=== PATIENT | female | born 1945 | race Caucasian/White ===

== ENCOUNTER 2017-12-13 06:21 | Inpatient (IN) | payer MEDICARE, MEDICAID, SELFPAY ==
[2017-11-20 10:53] VITALS: BMI 37.5
[2017-12-13] VITALS (31 sets, daily range): BP systolic 77–162; BP diastolic 20–83; PULSE 51–69; RESP 10–20; TEMP 36.1–36.3; O2SAT 91–100; BMI 37.5
[2017-12-13] MEDS: LACTATED RINGERS 1,000 ML 42 ML IV ×2 (07:15→09:33)
[2017-12-13] MEDS: ALBUTEROL 2.5 MG/3 ML NEB (ADULT) INH ×2 (07:54→14:30)
--- NOTE | 2017-12-13 08:02 | PM.PREOP ---
Pre-operative Note Interval Note Pre-op Check: History & Physical Reviewed by Physician, Exam Performed and History & Physical exam performed today
[2017-12-13] MEDS: CEFAZOLIN 2 GM/100 ML FROZ.PIGGY IV ×3 (08:14→21:11)
--- NOTE | 2017-12-13 09:01 | SUR.OPER ---
Prone on spine table, head in foam head support, padded chest and pelvic supports, gel pad at knees, lower legs supported by pillows; nipples, genitalia and toes free of pressure, arms secured on foam padded arm boards at <90 degrees abduction. Tape over blanket at thigh secured to table.
[2017-12-13] MEDS: BUPIVACAINE 0.25% W/ EPI 50 ML VIAL INJ (09:14)
[2017-12-13] MEDS: BUPIVACAINE LIPOSOME 266 MG/20 ML VIAL INJ (09:15)
[2017-12-13] MEDS: ACETAMINOPHEN IV 1,000 MG/100 ML VIAL 400 MG IV (11:42)
--- NOTE | 2017-12-13 12:00 | DI.RAD.S_ITS ---
PROCEDURE: XR LUMBAR SPINE 2-3V INDICATIONS: L3-4, L4-5, L5-S1 TLIF TECHNIQUE: 2 views of the lumbar spine were acquired. COMPARISON: None. FINDINGS: 2 spot fluoroscopic intraoperative findings demonstrating L3-S1 posterior spinal fixation with interbody cage grafts. There is expected intraoperative alignment. Dictated by: Mathew Taylor M.D. on 12/13/2017 at 14:06 Approved by: Mathew Taylor M.D. on 12/13/2017 at 14:07
--- NOTE | 2017-12-13 13:26 | SUR.OPER ---
right anterior ankle - 50 cent piece size reddened area covered in gauze. noted before positioning patient. navi triplett marked area
--- NOTE | 2017-12-13 13:26 | PM.OP.1 ---
Operative Date/Time/Diagnoses - Date of procedure: 12/13/17 Time of procedure: 08:27 Pre-op diagnosis: 1. L3-4, L4-5, L5-S1 spinal stenosis 2. L3-4, L4-5, L5-S1 spondylolisthesis 3. L3-4, L4-5, L5-S1 spondylosis with radiculopathy Post-op diagnosis: same Procedure & Clinicians Procedure: 1. L3-4, L4-5, L5-S1 Postero-lateral and posterior interbody fusion 2. L3-4, L4-5, L5-S1 interbody cage placement. 3. L3-4, L4-5, L5-S1 decompressive laminectomy with bilateral facetecomies 4. L3-4, L4-5, L5-S1 Posterior segmental instrumentation 5. [place] of bone marrow from iliac crest 6. Utilization of microsurgical technique and operating microscope Same procedure as scheduled: Yes Indications: Patient has been having chronic back pain and worsening lumbar radiculopathy. Patient failed multiple conservative management with worsening pain weakness and numbness in her lower extremity. Patient has been having difficulty performing activity of daily living. Patient has severe weakness of bilateral lower extremity and has been wheelchair-bound for the last year. After discussing risks benefits of treatment options, patient elected proceed with surgery. Surgeon: Amanda Franklin Cooling Room Attendant: Adina Aguilar Click Yes if Unassisted: No Anesthesia Type: General Operative Notes Closure Type: primary Specimen(s): none sent Implants & Drains: Globus Revolve screws and cages Applied: catheter Estimated Blood Loss (mL): 327 Blood products transfused: none Procedure in detail: Patient was seen in the preoperative area. Risks and benefits of the surgery was discussed with the patient. Informed consent was obtained from the patient and placed in the chart. Surgical site was marked. Patient was taken to the operative room. General anesthesia was administered. Prophylactic antibiotic was given to the patient less than 30 min before the incision was made. Patient was placed into a prone position on the Cristhian table. Patient's back was then prepped and draped in the sterile fashion. Time-out was performed at this time. Using AP and lateral C-arm imaging the interval between L3-S1 was identified and marked on patient's back. A 3 inch incision 2 in from midline was made on the left side first. The fascia was incised in line with skin incision. Globus MARS retractors was placed inside the incision and docked onto the L3, L4 and L5 lamina. Using microsurgical technique and operating microscope, a L3, L4 and L5 laminectomy and L3-4, L4-5 L5-S1 facetectomy was performed using a Kerrison rongeur. The disc space at L3-4, L4-5, L5-S1 was identified. And a total diskectomy was performed at L3-4, L4-5, L5-S1 level. The endplates were decorticated using a rasp and shaver. The total diskectomy and decortication was performed at L3-4, L4-5, L5-S1 level in order to to accomplish a L3-4, L4-5, L5-S1 fusion. The local bone from the laminectomy and facetectomy was saved for local bone grafting. After the total diskectomy and decortication was completed, Globus viacell bone graft material was combined with local bone that was harvested earlier. At this time, a separate skin is incision was made over the iliac crest. A Jamshidi needle was inserted into the iliac crest through a separate skin incision. 5 cc of bone marrow aspiration was obtained through the separate skin incision using a Jamshidi needle from the iliac crest. The bone marrow aspiration was combined with local bone and the via cell bone grafting material. The bone grafting material was placed into the L3-4, L4-5, L5-S1 interbody space along with three cages, one expandable cage at each level. The cages were expanded to their maximum height using the torque limiting screwdriver. At this time a mirror image incision was made on the right side. The fascia was incised in line with the skin incision. Globus MARS retractor was inserted and docked onto the L3-4, L4-5, L5-S1 posterolateral gutter. Using the power drill, posterior-lateral decortication was performed at L3-4, L4-5, L5-S1 level until bleeding cortical bone was identified. The remaining bone grafting material was placed into the L3-4, L4-5 L5-S1 posterior lateral gutter he order to accomplish posterolateral fusion at the L3-4, L4-5 L5-S1 levels. Using the double C-arm technique, pedicle screws were placed into the L3, L4, L5, S1 pedicles bilaterally. This was done by placing the Jamshidi needle into the pedicles, then placing the guidewires over the Jamshidi needle, and finally placing the cannulated screws over the guidewires bilaterally. After the pedicle screws were placed, 2 titanium rods was locked into the heads of the pedicle screws using locking caps and torque limiting screwdriver. Total 8 pedicles screws were placed. After all the hardware was placed, and confirmed with AP and lateral C-arm imaging, the wound was then irrigated with sterile normal saline and packed with Ray-Merary gauze for 3 min to accomplish hemostasis. After the gauze was removed the deep fascia was closed with #1 Vicryl suture. The subcutaneous layer was closed with 2-0 Vicryl. The skin was closed with skin percy. Patient tolerated the procedure well. There were no complications. Complications: none Condition: stable Disposition: PACU Plan for aftercare: admit to inpatient hospital
--- NOTE | 2017-12-13 16:12 | SUR.PHASEI ---
Lenny gtt up by Dr Cramerat 1350 at40 mcg/min Neb Albuterol at 1430 Lenny gtt decreased to 35 mcg/min at 1420 Lenny gtt decreased to 30 mcg/min at 1445 Lenny gtt decreased to 25 mcg/min at 1545 Report called to the ICU Pharmacy came to PACU to get orders for Lenny gtt for ICU at 1535
[2017-12-13] MEDS: SODIUM CHLORIDE 0.9% 1,000 ML 100 ML IV (16:30)
[2017-12-13] MEDS: HYDROMORPHONE 0.5 MG INJ IV ×3 (17:00→23:56)
[2017-12-13] MEDS: ONDANSETRON 4 MG/2 ML INJ IV (17:19)
[2017-12-13] MEDS: HYDROMORPHONE 2 MG TABLET PO (17:48)
--- NOTE | 2017-12-13 17:51 | PC.NURSE ---
1600- Pt arrived via bed from PACU. Pt arouses easily to her spoken name. BP is stable at this time bianca gtt is on hold. Pt oral airway has been removed by PACU. Pt noted to have a skin tear to her right cheek, her upper lip has a large blister that covers approximately 90% of the lip surface. Dr. Ventura stopped by to see the patient. Requested that she observe the airway to ensure that there was no swelling to the the upper airway. No stridor noted and saturation on 5l high flow nasal cannula is 100% Pt respirations ranging from 6 to 10. Pt encouraged to take deep breaths. Pt is in sinus radha on the monitor. Lungs are dim/clear. Pt is able to clear her throat of secretions. Will monitor closely.
[2017-12-13] MEDS: DOCUSATE 100 MG CAPSULE PO (21:15)
[2017-12-13] MEDS: CARVEDILOL 6.25 MG TABLET PO (21:15)
[2017-12-13] MEDS: INSULIN ASPART 100 UNIT/ML INSULN PEN SUBCUT (21:19)
[2017-12-13] MEDS: PREGABALIN 50 MG CAPSULE 200 MG PO (21:21)
[2017-12-13] MEDS: SENNOSIDES 8.6 MG TABLET 17.2 MG PO (21:35)
[2017-12-14] VITALS (10 sets, daily range): BP systolic 112–154; BP diastolic 48–92; PULSE 64–85; RESP 12–18; TEMP 36.4–37.9; O2SAT 94–100
[2017-12-14] MEDS: HYDROMORPHONE 0.5 MG INJ IV ×6 (02:07→23:59)
[2017-12-14] MEDS: SODIUM CHLORIDE 0.9% 1,000 ML 100 ML IV (03:18)
[2017-12-14] MEDS: CEFAZOLIN 2 GM/100 ML FROZ.PIGGY IV (04:09)
[2017-12-14 05:19] LABS: Hematocrit 34.4 % (36-46); Hemoglobin 11.3 g/dL (12.0-16.0)
[2017-12-14] MEDS: PANTOPRAZOLE 40 MG TABLET PO ×2 (06:14→20:17)
[2017-12-14] MEDS: hydrOXYzine pamoate 25 MG CAPSULE PO ×2 (06:15→22:55)
[2017-12-14] MEDS: ACETAMINOPHEN 325 MG TABLET 650 MG PO ×3 (06:15→21:44)
[2017-12-14] MEDS: CARVEDILOL 6.25 MG TABLET PO ×2 (08:49→20:22)
[2017-12-14] MEDS: PREGABALIN 50 MG CAPSULE 200 MG PO ×3 (08:49→20:17)
[2017-12-14] MEDS: FERROUS SULFATE 325 MG TABLET PO (08:50)
[2017-12-14] MEDS: DULOXETINE 30 MG CAPSULE 60 MG PO (08:50)
[2017-12-14] MEDS: DOCUSATE 100 MG CAPSULE PO (08:50)
[2017-12-14] MEDS: ATORVASTATIN 20 MG TABLET PO (08:50)
[2017-12-14] MEDS: SPIRONOLACTONE 25 MG TABLET PO (08:51)
[2017-12-14] MEDS: HYDROXYCHLOROQUINE 200 MG TABLET 400 MG PO (08:51)
[2017-12-14] MEDS: LISINOPRIL 5 MG TABLET PO (08:51)
[2017-12-14] MEDS: LEFLUNOMIDE 20 MG TABLET PO (08:52)
[2017-12-14] MEDS: INSULIN ASPART 100 UNIT/ML INSULN PEN 10 UNIT SUBCUT (08:53)
[2017-12-14] MEDS: OXYCODONE IR 10 MG TABLET PO ×2 (09:00→22:12)
--- NOTE | 2017-12-14 09:32 | PM.CN ---
History of Present Illness Date Patient Seen: 12/14/17 Time Patient Seen: 08:15 Chief complaint: [id number]/M48.06 Reason for consult: Diabetes Narrative: The patient underwent L3-S1 spinal fusion on 12/13/2017 for lumbar spinal stenosis with radiculopathy. She has chronic diabetes with diabetic peripheral neuropathy with numbness below the knees. Surgery was performed under general anesthesia without an epidural or spinal anesthesia, and postoperatively the patient was hypotensive requiring pressors and hypoxic requiring oxygen. This resolved over night with patient titrated off her Crestor and oxygen with room air oxygen saturation 95% in the morning. Blood sugar was 127. She states her last hemoglobin A1c was 8%. Besides the back pain she reports no other complaints. [facility] Medical History Anxiety (Acute) Asthma (Acute) Blepharoconjunctivitis (Acute) CHF (congestive heart failure) (Acute) COPD (chronic obstructive pulmonary disease) (Acute) Cataract fragments in both eyes following surgery (Acute) Chronic low back pain (Acute) Complicated urinary tract infection (Acute) Depression (Acute) Diabetes (Acute) Dizziness (Acute) Dyspnea (Acute) Eczema (Acute) Fatigue (Acute) Fibromyalgia (Acute) GERD (gastroesophageal reflux disease) (Acute) 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) History of GI bleed (Acute) History of UTI (Acute) History of chest pain (Acute) History of headache (Acute) Hypertension (Acute) IBS (irritable bowel syndrome) (Acute) Liver disease (Acute) Memory loss (Acute) Nausea (Acute) Neurogenic bladder (Acute) Neuropathy due to secondary diabetes (Acute) Osteoarthritis (Acute) Osteoporosis (Acute) Ovarian cyst, right (Acute) Paroxysmal A-fib (Acute) Postmenopausal (Acute) Restless leg syndrome (Acute) Rheumatoid arthritis (Acute) Sinus infection (Acute) Sleep apnea (Acute) Sleeping difficulty (Acute) Spinal stenosis (Acute) Ulcer of toe of left foot (Acute) Urinary urgency (Acute) Vulvovaginitis due to yeast (Acute) Yeast dermatitis (Acute) Social History household members: other Smoking Status: Never smoker alcohol intake: never Comment: She is under the primary care of Dr. Shane Flower, lives in [place] and is single. Meds Home Medications Medication Instructions Recorded Confirmed Type abatacept 125 mg SUB-Q QWEEK 11/20/17 12/13/17 History albuterol sulfate [ProAir HFA] 2 puff INHALATION Q4-6H PRN 11/20/17 12/13/17 History aspirin 81 mg PO DAILY 11/20/17 12/13/17 History atorvastatin 20 mg PO DAILY 11/20/17 12/13/17 History betamethasone, augmented 1 applic TOPICAL DAILY 11/20/17 12/13/17 History carvedilol 6.25 mg PO BID 11/20/17 12/13/17 History diclofenac sodium 2 applic TOPICAL BID PRN 11/20/17 12/13/17 History duloxetine 60 mg PO DAILY 11/20/17 12/13/17 History duloxetine 60 mg PO DAILY 11/20/17 12/13/17 History duloxetine [Cymbalta] 60 mg PO DAILY 11/20/17 12/13/17 History ferrous sulfate 325 mg PO DAILY 11/20/17 12/13/17 History fluoxetine 20 mg PO QAM 11/20/17 12/13/17 History fluticasone 2 spray INTRANASAL DAILY PRN 11/20/17 12/13/17 History furosemide 20 mg PO DAILY PRN 11/20/17 12/13/17 History hydromorphone 2 mg PO BID PRN 11/20/17 12/13/17 History hydroxychloroquine 400 mg PO DAILY 11/20/17 12/13/17 History hyoscyamine sulfate 0.125 mg PO PRN PRN 11/20/17 12/13/17 History insulin lispro [Humalog U-100 10 unit SUB-Q QAM 11/20/17 12/13/17 History Insulin] insulin lispro [Humalog U-100 25 unit SUB-Q SEEINSTR 11/20/17 12/13/17 History Insulin] leflunomide 20 mg PO DAILY 11/20/17 12/13/17 History lisinopril 5 mg PO DAILY 11/20/17 12/13/17 History loratadine 10 mg PO DAILY PRN 11/20/17 12/13/17 History nitroglycerin 0.4 mg SUBLINGUAL Q5-15M PRN 11/20/17 12/13/17 History nystatin 1 applic TOPICAL BID PRN 11/20/17 12/13/17 History omeprazole 40 mg PO BID 11/20/17 12/13/17 History pramipexole 0.5 mg PO SEEINSTR 11/20/17 12/13/17 History pregabalin [Lyrica] 200 mg PO TID 11/20/17 12/13/17 History spironolactone 25 mg PO DAILY 11/20/17 12/13/17 History tolnaftate 1 applic TOPICAL BID 11/20/17 12/13/17 History zolpidem 5 mg PO BEDTIME PRN 11/20/17 12/13/17 History Allergies Allergy/AdvReac Type Severity Reaction Status Date / Time metformin [METFORMIN] Allergy Severe Hives Verified 12/13/17 07:25 methadone Allergy Severe Hives Verified 12/13/17 07:25 Sulfa (Sulfonamide Allergy Severe Hives Verified 12/13/17 07:25 Antibiotics) sulfasalazine Allergy Severe R/T sulfa Verified 12/13/17 07:25 allergy trazodone Allergy Severe Hives, Verified 12/13/17 07:25 Resp issues, confusion trimethoprim Allergy Intermediate Hives Verified 12/13/17 07:25 etanercept Allergy Mild Rash, Verified 12/13/17 07:25 non-urticarial adalimumab Allergy Unknown Localized Verified 12/13/17 07:25 swelling diflunisal AdvReac Severe May have Verified 12/13/17 07:25 caused renal injury 10/28 bacitracin AdvReac Intermediate Swelling, Verified 12/13/17 07:25 burning amoxicillin AdvReac Unknown Diarrhea Verified 12/13/17 07:25 cefuroxime AdvReac Unknown Diarrhea Verified 12/13/17 07:25 hydroxychloroquine AdvReac Unknown Stopped Verified 12/13/17 07:25 for unknown reason methotrexate AdvReac Unknown oral ulcer Verified 12/13/17 07:25 issues Exam Vital Signs (past 8 hours): - 12/14/17 02:16 12/14/17 04:11 12/14/17 06:00 Temperature 100.2 F H Pulse Rate 66 70 75 Respiratory Rate 14 15 12 Blood Pressure 134/53 H 133/50 H 149/70 H Pulse Oximetry 98 99 98 12/14/17 07:51 Temperature 99.3 F Pulse Rate 76 Respiratory Rate 18 Blood Pressure 147/63 H Pulse Oximetry 99 Oxygen Delivery Method Nasal Cannula Oxygen Flow Rate 3 Narrative Exam Narrative: General: Obese female, mildly somnolent, stating moderate back pain appearing uncomfortable HEENT: Pupils 1 mm, round, reactive Neck: Supple Lungs: Clear to auscultation Cardiac: Regular rate and rhythm with grade 3/6 systolic murmur Abdomen: Soft, nontender, obese Extremities: Without edema Genitourinary: Navarrete catheter in place Neurologic: Absent sensation below the knees due to chronic diabetic peripheral neuropathy, otherwise normal sensation and motor function Objective Labs Result Diagrams: 12/14/17 04:45 Labs: Laboratory Results - last 24 hr 12/14/17 04:45 Hgb 11.3 L Hct 34.4 L Assessment & Plan Plan: Assessment/Plan Narrative: 1. Diabetes mellitus, type 2. Appears well controlled. Monitor with advancing diet. Continue routine insulin with sliding scale coverage. 2. Hypertension. Appears adequately controlled. Continue routine medication. 3. Rheumatoid arthritis. Continue routine antirheumatic medications. She does not need to receive Orencia, however, while in the hospital. 4. Lumbar spinal stenosis, status post lumbar fusion 12/13/2017. Management per Orthopedics and Physical therapy. The hospitalist service wishes to thank the Orthopedic Services for consulting us on this delightful patient. Will follow with you during hospitalization.
--- NOTE | 2017-12-14 09:45 | CM.DANOTE ---
DCP Assessment Patient is a 72 year old female who was admitted on 12/13/17 for Surgery. Pt has [facility] and [facility] for insurance and her PCP is Dr. Sanches. EMR was reviewed. Per MD, pt tolerated procedure and not stable for d/c home today. PT/OT ordered and pending. SW met bedside with pt and explained role and pt confirmed that she lives at home in [place] with her adult Dtr Mariana and pt also has 2 Caregivers through [employer] that assist pt with ADL's. Pt's [facility] CM is Shayna. Pt typically relies on others for transportation. Pt has a hx of [facility] and [facility] in [place]. Pt believes that her Dtr Annmarie is her DPOA and she lives in [place]. Pt's preference is to d/c home with [facility] but is aware that if she doesn't progress enough here that she may need SNF again. Plan: SW to follow closely after PT/OT eval towards determining d/c planning needs of SNF vs Home with HH and adult Dtr and [facility]. Cindi Briones, SAMPLE PASTER
--- NOTE | 2017-12-14 11:00 | PT.IIE ---
Current Diagnoses Spondylolisthesis, lumbar region (12/13/17) Other spondylosis with radiculopathy, lumbar region (12/13/17) Surgery Performed Operation Date: 12/13/17 07:45 Actual Procedures p L34-, L4-5, L5-S1 TLIF w/Posterior Instru(Not Applicable) - Amanda Franklin MD Medical History (Last Reviewed 12/14/17 @ 09:35 by Thom Mohr MD) Anxiety (Acute) Asthma (Acute) Blepharoconjunctivitis (Acute) CHF (congestive heart failure) (Acute) COPD (chronic obstructive pulmonary disease) (Acute) Cataract fragments in both eyes following surgery (Acute) Chronic low back pain (Acute) Complicated urinary tract infection (Acute) Depression (Acute) Diabetes (Acute) Dizziness (Acute) Dyspnea (Acute) Eczema (Acute) Fatigue (Acute) Fibromyalgia (Acute) GERD (gastroesophageal reflux disease) (Acute) 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) History of GI bleed (Acute) History of UTI (Acute) History of chest pain (Acute) History of headache (Acute) Hypertension (Acute) IBS (irritable bowel syndrome) (Acute) Liver disease (Acute) Memory loss (Acute) Nausea (Acute) Neurogenic bladder (Acute) Neuropathy due to secondary diabetes (Acute) Osteoarthritis (Acute) Osteoporosis (Acute) Ovarian cyst, right (Acute) Paroxysmal A-fib (Acute) Postmenopausal (Acute) Restless leg syndrome (Acute) Rheumatoid arthritis (Acute) Sinus infection (Acute) Sleep apnea (Acute) Sleeping difficulty (Acute) Spinal stenosis (Acute) Ulcer of toe of left foot (Acute) Urinary urgency (Acute) Vulvovaginitis due to yeast (Acute) Yeast dermatitis (Acute) Physical Therapy Inpatient Evaluation/Re-Eval M1 PT/OT-IP Prior Functional Status Start: 12/14/17 11:48 Freq: NEEDED Status: Active Protocol: Document 12/14/17 11:00 AB (Rec: 12/14/17 12:28 AB [id number]) Medical Review Prior Functional Status Medical History Reviewed Yes Mobility and Gait pt stated that she needs assist with stand pivot transfer bed <>power w/c<> recliner. pt has a caregiver that assists her and assists varies for max A of 1 to 3 persons. stated that she has grab bars and she holds on to the grab bar for toilet and shower transfers from power w/ c. h/o falls due to BLE just given out on her. Last fall per pt was ~ 4 days ago. Activities of Daily Living and IADL's pt has caregivers in the morning and her daughter assists in the evening when she is back from work Prior Functional Level (Other details) pt stated that she has been w/ c bound for ~ 5 years due to BLE weakness and dizziness and also c/o BLE neuropathy for ~ 10 years. 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 Living Arrangements Apartment/Condo Number of Floors (Floors) One Floor Home Environment Standard Height Toilet Walk in Shower Home Equipment Power Wheelchair/Scooter Grab Bars Near Toilet Grab Bars In Shower Employment Status Retired M2 PT-IP Current Condition Start: 12/14/17 12:15 Freq: NEEDED Status: Active Protocol: Document 12/14/17 11:00 AB (Rec: 12/14/17 12:28 [id number] Physical Therapy Current Condition Current Condition Evaluation Date 12/14/17 Treatment Diagnosis s/p L3-4, L4-5, L5S1 TLIF and laminectomy; generalized weakness Onset Date 12/13/17 Precautions Lumbar Precautions Log Roll No Twisting Limit Bending Lifting Restriction of 10 lbs Gait Belt above Incisional Area M3 PT-IP Subjective Start: 12/14/17 12:15 Freq: NEEDED Status: Active Protocol: Document 12/14/17 11:00 AB (Rec: 12/14/17 12:28 [id number]) Subjective Physical Therapy Visit Type Type Initial Evaluation Visit Start Time 11:00 Visit Stop Time 11:35 Total Visit Minutes 35 Number of AUTOMOTIVE TEACHER Visits 0 Therapy Pain Assessment Pain When Pain Assessed At Rest Pain Present Pain Present Pain Reported Location Lower Back Intensity 9 Scale Used Numeric (1 - 10) Pain Behaviors Calling Out Guarding Pain Management Techniques Re-positioning Timing of Activity with Medications M4 PT-IP Mobility and Gait Start: 12/14/17 12:15 Freq: NEEDED Status: Active Protocol: Document 12/14/17 11:00 AB (Rec: 12/14/17 12:28 AB [id number]) PT-Bed Mobility Assessment Rolling Type of Rolling Log Rolling Level of Assist Maximal Assistance 2 Person Assistance Supine to Sit Supine to Sit Total Assistance 2 Person Assistance Bedrails Sit to Supine Sit to Supine Total Assistance 2 Person Assistance Bedrails PT-Transfer Assessment Comments Mobility Comments pt was able to sit on EOB requiring max A and max cues; unable to maintain sitting balance with increase posterior LOB. pt unable to complete a transfer to the chair. instructed [facility] that they can do a leon lift transfer with pt. PT-Balance Assessment Sitting Balance and Reactions Static Sitting Balance Ability Poor Dynamic Sitting Balance Ability Poor M5 PT-IP Objective Assessments Start: 12/14/17 12:15 Freq: NEEDED Status: Active Protocol: Document 12/14/17 11:00 AB (Rec: 12/14/17 12:28 AB [id number]) Orientation Orientation/Cognition Level of Alertness Alert Orientation Name Situation Safety Awareness Decreased Safety Awareness Memory Description Short Term Impaired Stonemason Supervisor Impaired Gross Range of Motion Lower Extremity ROM Assessment Within Functional Limits Strength Lower Extremity Strength Assessment Bilaterally Impaired Hip 2-/5 Knee 2-/5 Ankle 2-/5 Sensation Assessment Sensation Gross Sensation Right LE Impaired Left LE Impaired Light Touch Impaired Proprioception (Position) Impaired Sensation Description Numbness M6 PT-IP Treatment Start: 12/14/17 12:15 Freq: NEEDED Status: Active Protocol: Document 12/14/17 11:00 AB (Rec: 12/14/17 12:28 AB [id number]) Physical Therapy Treatment Education Education Provided Precautions Weight Bearing Status Post-Op Packet Safety M7 PT-IP Assessment and Plan Start: 12/14/17 12:15 Freq: NEEDED Status: Active Protocol: Document 12/14/17 11:00 AB (Rec: 12/14/17 12:28 [id number]) PT Summary Assessment and Plan Potential Rehabilitation Potential Fair Status of Condition at Evaluation Evolving Summary Impairments Pain ROM Strength Balance Coordination Sensation Tone Cognition Bed Mobility Transfers Gait Activity Tolerance Assessment Summary pt requiring total A x 2-3 for mobility at this time. pt will require SNF rehab. Goals Bed Mobility Goal Moderate Assistance Transfer Goal Moderate Assistance Front Wheeled Walker Days to Meet Goals 3 Frequency of Treatment Frequency Of Treatment Twice a Day Treatment Plan Physical Therapy Treatment Plan Bed Mobility Training Transfer Training Gait Training Therapeutic Exercise Balance Retraining Post Op Education Discharge Planning Hot or Cold Pack Neuromuscular Re-ed Coordination Retraining Manual Therapy Recommendations To Nursing Amount of Assist Needed 3 or More Person Assist Mechanical Lift Discharge Recommendations PT Discharge Recommendations SNF Rehab
[2017-12-14] MEDS: HYDROMORPHONE 2 MG TABLET PO ×2 (11:44→14:08)
--- NOTE | 2017-12-14 13:04 | PM.PNPO.1 ---
Subjective Date Patient Seen: 12/14/17 Time Patient Seen: 13:04 Interval history: Hospital day 2, postop day 1 following L3-4 through L5-S1 TLIF, cage, posterior screw fixation by Dr. Franklin. Patient continues have significant pain. Has been receiving Dilaudid IV push and p.o. oxycodone. Patient complains of continued pain to the low back and increased bilateral leg pain since surgery. She has not been out of bed yet had PT. Exam Vital Signs (past 8 hours): - 12/14/17 06:00 12/14/17 07:51 12/14/17 12:00 Temperature 99.3 F 97.5 F L Pulse Rate 75 76 71 Respiratory Rate 12 18 16 Blood Pressure 149/70 H 147/63 H 124/48 H Pulse Oximetry 98 99 95 Oxygen Delivery Method High Flow Nasal Cannula Oxygen Flow Rate 3 Narrative Exam Narrative: Alert, responsive line been appearing and moderate discomfort. Legs. No calf pain or swelling. Pulses symmetrical. Sensation to touch to the lower legs. Objective Labs Result Diagrams: 12/14/17 04:45 Labs: Laboratory Results - last 24 hr 12/14/17 04:45 Hgb 11.3 L Hct 34.4 L Assessment & Plan Post-op Postoperative Procedures Operation Date: 12/13/17 07:45 Actual Procedures Side Surgeon p L34-, L4-5, L5-S1 TLIF w/Posterior Instru Not Applicable Amanda Franklin MD Plan. Will adjust patient's pain medication. Will add dexamethasone to see if this will help with her back and leg pain. When patient is stable she will be transferred to routine care acute floor. Will DC dry chain offbearer. Patient also being followed by hospitalist for medical issues. Time Spent With Patient less than 15 minutes Quality VTE Deep Vein Thrombosis/Pulmonary Embolism Present on Admission: No
--- NOTE | 2017-12-14 13:07 | P.PN_ITS ---
Subjective Date Patient Seen: 12/14/17 Time Patient Seen: 13:04 Interval history: Hospital day 2, postop day 1 following L3-4 through L5-S1 TLIF , cage, posterior screw fixation by Dr. Franklin. Patient continues have significant pain. Has been receiving Dilaudid IV push and p.o. oxycodone. Patient complains of continued pain to the low back and increased bilateral leg pain since surgery. She has not been out of bed yet had PT. Exam Vital Signs (past 8 hours): - 12/14/17 06:00 12/14/17 07:51 12/14/17 12:00 Temperature 99.3 F 97.5 F L Pulse Rate 75 76 71 Respiratory Rate 12 18 16 Blood Pressure 149/70 H 147/63 H 124/48 H Pulse Oximetry 98 99 95 Oxygen Delivery Method High Flow Nasal Cannula Oxygen Flow Rate 3 Narrative Exam Narrative: Alert, responsive line been appearing and moderate discomfort. Legs. No calf pain or swelling. Pulses symmetrical. Sensation to touch to the lower legs. Objective Labs Result Diagrams: 12/14/17 04:45 Labs: Laboratory Results - last 24 hr 12/14/17 04:45 Hgb 11.3 L Hct 34.4 L Assessment & Plan Post-op Postoperative Procedures Operation Date: 12/13/17 07:45 Actual Procedures Side Surgeon p L34-, L4-5, L5-S1 TLIF w/Posterior Instru Not Applicable Amanda Franklin MD Plan. Will adjust patient's pain medication. Will add dexamethasone to see if this will help with her back and leg pain. When patient is stable she will be transferred to routine care acute floor. Will DC manager environmental health. Patient also being followed by hospitalist for medical issues. Time Spent With Patient less than 15 minutes Quality VTE Deep Vein Thrombosis/Pulmonary Embolism Present on Admission: No
--- NOTE | 2017-12-14 13:38 | SUR.OPER ---
DAy shift: Arrived on unit at aprox 1300 from ICU. Pt drowsy but able to answer questions proper. Dressing on back CDI.LEft gaspar dressing CDI as well. Pt was placed in Gurmeet and moved to Abigail bed. This move was painful for Pt. She complained of leg pain. Gave 0.5mg IV Dilaudid. Pt is eating pudding w/ her daughters help. RA 97%. Navarrete patent w/ good output. IV flushes and is SL. LAst BG 145. Oriented to room and call light. Wheelchair use is her baseline. 3 ppl max assist.
[2017-12-14] MEDS: DEXAMETHASONE 4 MG TABLET PO ×2 (14:07→21:45)
--- NOTE | 2017-12-14 15:25 | PT.IPTN ---
Current Diagnoses Spondylolisthesis, lumbar region (12/13/17) Other spondylosis with radiculopathy, lumbar region (12/13/17) Surgery Performed Operation Date: 12/13/17 07:45 Actual Procedures p L34-, L4-5, L5-S1 TLIF w/Posterior Instru(Not Applicable) - Amanda Franklin MD Physical Therapy Treatment Note M2 PT-IP Current Condition Start: 12/14/17 12:15 Freq: NEEDED Status: Active Protocol: Document 12/14/17 11:00 AB (Rec: 12/14/17 12:28 AB [id number]) Physical Therapy Current Condition Current Condition Evaluation Date 12/14/17 Treatment Diagnosis s/p L3-4, L4-5, L5S1 TLIF and laminectomy; generalized weakness Onset Date 12/13/17 Precautions Lumbar Precautions Log Roll No Twisting Limit Bending Lifting Restriction of 10 lbs Gait Belt above Incisional Area M3 PT-IP Subjective Start: 12/14/17 12:15 Freq: NEEDED Status: Active Protocol: Document 12/14/17 15:25 AB (Rec: 12/14/17 16:21 AB [id number]) Subjective Physical Therapy Visit Type Visit Start Time 15:25 Visit Stop Time 15:47 Total Visit Minutes 22 Number of CHILD WELFARE COUNSELOR Visits 0 Therapy Pain Assessment Pain When Pain Assessed At Rest Pain Present Pain Present Pain Reported Location Bilateral Hip Intensity 9 Scale Used Numeric (1 - 10) Pain Management Techniques Re-positioning M4 PT-IP Mobility and Gait Start: 12/14/17 12:15 Freq: NEEDED Status: Active Protocol: Document 12/14/17 15:25 AB (Rec: 12/14/17 16:21 AB [id number]) PT-Bed Mobility Assessment Rolling Type of Rolling Log Rolling Level of Assist Maximal Assistance 2 Person Assistance Supine to Sit Supine to Sit Total Assistance 2 Person Assistance Sit to Supine Sit to Supine Total Assistance 2 Person Assistance Scooting Scooting to Edge of Bed Dependent Scooting Up and Down in Bed Dependent PT-Transfer Assessment Comments Mobility Comments pt tolerated ~ 5min sitting on EOB. continues to have posterior trunk LOB requiring max A to maintain sitting. pt used bed handle for support. M5 PT-IP Objective Assessments Start: 12/14/17 12:15 Freq: NEEDED Status: Active Protocol: Document 12/14/17 11:00 AB (Rec: 12/14/17 12:28 AB [id number]) Orientation Orientation/Cognition Level of Alertness Alert Orientation Name Situation Safety Awareness Decreased Safety Awareness Memory Description Short Term Impaired Retirement Impaired Gross Range of Motion Lower Extremity ROM Assessment Within Functional Limits Strength Lower Extremity Strength Assessment Bilaterally Impaired Hip 2-/5 Knee 2-/5 Ankle 2-/5 Sensation Assessment Sensation Gross Sensation Right LE Impaired Left LE Impaired Light Touch Impaired Proprioception (Position) Impaired Sensation Description Numbness M6 PT-IP Treatment Start: 12/14/17 12:15 Freq: NEEDED Status: Active Protocol: Document 12/14/17 11:00 AB (Rec: 12/14/17 12:28 AB [id number]) Physical Therapy Treatment Education Education Provided Precautions Weight Bearing Status Post-Op Packet Safety M7 PT-IP Assessment and Plan Start: 12/14/17 12:15 Freq: NEEDED Status: Active Protocol: Document 12/14/17 15:25 AB (Rec: 12/14/17 16:21 AB [id number]) PT Summary Assessment and Plan Potential Rehabilitation Potential Fair Summary Impairments Pain ROM Strength Balance Coordination Sensation Tone Cognition Bed Mobility Transfers Gait Activity Tolerance Progress Towards Goals Slow Progress due to Pain Slow Progress due to Medical Issues Slow Progress due to Activity Tolerance Assessment Summary pt continues to require total A x 2-3 with max cues. pt will require SNF rehab. Goals Days to Meet Goals 3 Frequency of Treatment Frequency Of Treatment Twice a Day Treatment Plan Physical Therapy Treatment Plan Bed Mobility Training Transfer Training Gait Training Therapeutic Exercise Balance Retraining Post Op Education Discharge Planning Hot or Cold Pack Neuromuscular Re-ed Coordination Retraining Manual Therapy Recommendations To Nursing Amount of Assist Needed 3 or More Person Assist Mechanical Lift Discharge Recommendations PT Discharge Recommendations SNF Rehab
--- NOTE | 2017-12-14 15:38 | PC.NURSE ---
Addendum entered by Hugo Hawley R.N. 12/14/17 15:56: patient is back to bed, somnolent but is easily awaken by staff. Patient reports pain to be 8/10 at this time but states it is tolerable. Because of patient's somnolent state this nurse has choose to wait to medicate paitent for said pain until she is able to stay awake for a longer period of time, patient was falling asleep during assessment but was able to answer questions that staff member asked her. Patient is A&O to self, persident and place but stated it was Saturday. Cont. pulse ox to stay on patient while sleeping. Call light w/ in reach, bed in low pos. alarm active. Original Note: OT in room working with patient, will return back later on to assess patient.
--- NOTE | 2017-12-14 15:55 | OT.IP.EVAL ---
Current Diagnoses Spondylolisthesis, lumbar region (12/13/17) Other spondylosis with radiculopathy, lumbar region (12/13/17) Surgery Performed Operation Date: 12/13/17 07:45 Actual Procedures p L34-, L4-5, L5-S1 TLIF w/Posterior Instru(Not Applicable) - Amanda Franklin MD Past Medical History (Last Reviewed 12/14/17 @ 09:35 by Thom Mohr MD) Anxiety (Acute) Asthma (Acute) Blepharoconjunctivitis (Acute) CHF (congestive heart failure) (Acute) COPD (chronic obstructive pulmonary disease) (Acute) Cataract fragments in both eyes following surgery (Acute) Chronic low back pain (Acute) Complicated urinary tract infection (Acute) Depression (Acute) Diabetes (Acute) Dizziness (Acute) Dyspnea (Acute) Eczema (Acute) Fatigue (Acute) Fibromyalgia (Acute) GERD (gastroesophageal reflux disease) (Acute) 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) History of GI bleed (Acute) History of UTI (Acute) History of chest pain (Acute) History of headache (Acute) Hypertension (Acute) IBS (irritable bowel syndrome) (Acute) Liver disease (Acute) Memory loss (Acute) Nausea (Acute) Neurogenic bladder (Acute) Neuropathy due to secondary diabetes (Acute) Osteoarthritis (Acute) Osteoporosis (Acute) Ovarian cyst, right (Acute) Paroxysmal A-fib (Acute) Postmenopausal (Acute) Restless leg syndrome (Acute) Rheumatoid arthritis (Acute) Sinus infection (Acute) Sleep apnea (Acute) Sleeping difficulty (Acute) Spinal stenosis (Acute) Ulcer of toe of left foot (Acute) Urinary urgency (Acute) Vulvovaginitis due to yeast (Acute) Yeast dermatitis (Acute) Occupational Therapy Inpatient Evaluation/Re-Eval M1 PT/OT-IP Prior Functional Status Start: 12/14/17 11:48 Freq: NEEDED Status: Active Protocol: Document 12/14/17 11:59 [facility] (Rec: 12/14/17 12:30 [facility] [id number]) Medical Review Prior Functional Status Medical History Reviewed Yes Diet/Fluid Consistency Regular Thin Liquids Mobility and Gait Prior per pt needing assist 1- 2 person stand pivot assist from bed to power wc, power wc to toilet or power recliner. Spoke to pt's daughter and she states pt able to transfer on her own squat prior and heavy use of arms to grab bars, and armrests Activities of Daily Living and IADL's Pt total assist for all LB dressing needs, and able to do most of UB dressing needs per pt. Prior Functional Level (Other details) Pt states able to do own grooming and eating on her own . Social History Household Members children Living Arrangements Apartment/Condo Number of Floors (Floors) One Floor Home Environment Standard Height Toilet Walk in Shower Home Equipment Power Wheelchair/Scooter Tub Transfer Bench Lift Recliner Grab Bars Near Toilet Grab Bars In Shower Additional Social History Comment Pt daughter assist at night from 9PM to 10Am and has DALJIT caregivers during the day 4 hours each. M2 OT-IP Current Condition Start: 12/14/17 11:48 Freq: Status: Active Protocol: Document 12/14/17 11:59 [facility] (Rec: 12/14/17 12:30 [facility] [id number]) Occupational Therapy Current Condition Current Condition Evaluation Date 12/14/17 Treatment Diagnosis Lumbar spinal stenosis Post Operative Precautions Lumbar Precautions Log Roll No Twisting Limit Bending Lifting Restriction of 10 lbs Gait Belt above Incisional Area Weight Bearing Status Weight Bearing Status Full Weight Bearing M3 OT- IP Subjective and Pain Start: 12/14/17 11:48 Freq: Status: Active Protocol: Document 12/14/17 11:59 [facility] (Rec: 12/14/17 12:30 [facility] [id number]) OT- Subjective Occupational Therapy Visit Type Type Initial Evaluation Visit Start Time 11:00 Visit Stop Time 11:40 Total Visit Minutes 40 Occupational Therapy Visit Comments Patient Comments Pt willing to get up. Patient/Caregiver Goals Pt wanting to go home versus skilled rehab. OT Pain Assessment Pain When Pain Assessed At Rest Pain Present Pain Present Pain Reported Location Lower Back Intensity 9 Scale Used Numeric (1 - 10) Management Techniques Timing of Activity with Medications M4 OT- IP ADL's Start: 12/14/17 11:48 Freq: Status: Active Protocol: Document 12/14/17 11:59 [facility] (Rec: 12/14/17 12:30 [facility] [id number]) OT TEC-Djjn-Rvasnvi General Evaluation Self-Feeding Ability Total Assistance Comments OT Self-Feeding Comments Pt's arms very shaky and had to be fed this morning per aid . OT ADL-Grooming General Evaluation Grooming Ability Total Assistance Comments OT Grooming Comments Unable to reach up to her face with a washcloth and needing assist. OT ADL-Dressing General Eval Upper Body Dressing Ability Total Assistance Lower Body Dressing Ability Total Assistance Areas Needing Assistance Retrieving/Set-up of Clothing Socks Comments OT Dressing Comments Pt dependent for all dressing needs at this time. OT ADL-Toileting General Evaluation Areas Needing Assistance Empty Catheter or Colostomy Comments OT Toileting Comments Use of catheter OT ADL-Bathing Comments OT Bathing Comments Sponge bathing at this time. M6 OT- IP Functional Cognition Start: 12/14/17 11:48 Freq: Status: Active Protocol: Document 12/14/17 11:59 [facility] (Rec: 12/14/17 12:30 [facility] [id number]) Cognitive Factors Limiting Selfcare Function Cognitive Ability Level of Alertness Alert Drowsy Patient Orientation Name Place Situation Attention Span Ability Capable of Focused Attention Unable to Sustain Attention Ability to Follow Commands Able to Follow One Step Commands Memory Description Short Term Impaired Safety Awareness Underestimates Need for Assistance Cognitive Comments Cognitive Assessment Comments Pt having difficulty to follow directions due to very distracted with pain and having difficulty to sustain her attention. OT- Vision and Hearing OT- Hearing Assessment OT- Hearing Assessment WFL M7 OT- IP Mobility and Balance Start: 12/14/17 11:48 Freq: Status: Active Protocol: Document 12/14/17 11:59 [facility] (Rec: 12/14/17 12:30 [facility] [id number]) OT- Bed Mobility Assessment Rolling Type of Rolling Roll to Left Level of Assistance Total Assistance Supine to Sit Supine to Sit Assist Total Assistance Sit to Supine Sit to Supine Assist Total Assistance OT-Transfer Assessment Comments Mobility Comments MAX A X3 for bed mobility. OT- Balance Assessment Sitting Balance and Reactions Static Sitting Balance Ability Poor Comments Other Balance Tests/Deviations/Treatment Pt needing at least MODA x1 to : help maintain sitting balance , pt very fearful and guarding . M8 OT- IP Objective Assessments Start: 12/14/17 11:48 Freq: Status: Active Protocol: Document 12/14/17 11:59 [facility] (Rec: 12/14/17 12:30 [facility] [id number]) OT Gross Range of Motion Upper Extremity Range of Motion Assessment Bilaterally Impaired ROM Impairments Pt very shaky and limited movements, able to bend at elbow, and hands appeared swollen and not able to fully close her hands. OT Strength Comments Strength Comments Pt 3-/5 for BUE. M9 OT- IP Assessment and Plan Start: 06/30/18 11:48 Freq: Status: Active Protocol: Document 12/14/17 11:59 [facility] (Rec: 12/14/17 12:30 [facility] [id number]) OT Summary Assessment and Plan Potential Rehabilitation Potential Fair Analytic Complexity at Evaluation Moderate Summary OT Impairments Pain Range of Motion Strength Balance Coordination Sensation Functional Cognition Functional Mobility Self-Feeding Grooming Dressing Toileting Bathing Toilet Transfers Shower Transfers Progress Towards Goals Slow Progress due to Pain Slow Progress due to Medical Issues Slow Progress due to Activity Tolerance Slow Progress due to Cognition Assessment Summary Pt now needing extensive assist x3 for bed mobility and unable to attempt to stand at this time. Pt now unable to functional use BUE to do grooming and eating needs. Pt will need skilled rehab as prior able to transfer with one person assist. Goals Self-Feeding Goal Standby Assistance Grooming Goal Minimal Assistance Patient/Caregiver Education Goal Caregiver Independent Assisting Patient OT-Other Goals Pt to be able to do stand pivot transfer with MAX A x1 to [facility] [place] [place] and recliner. Frequency of Treatment Frequency Of Treatment Once a Day Treatment Plan OT Treatment Plan ADL Training Functional Cognition Training Functional Mobility Patient/Family Education Discharge Planning Discharge Recommendations OT Discharge Recommendations SNF Rehab
[2017-12-14] MEDS: PRAMIPEXOLE 0.25 MG TABLET 0.5 MG PO (20:19)
[2017-12-14] MEDS: INSULIN ASPART 100 UNIT/ML INSULN PEN SUBCUT (20:21)
[2017-12-15] MEDS: SODIUM CHLORIDE 0.9% FLUSH 10 ML IV ×3 (00:01→20:15)
[2017-12-15 05:00] VITALS: BP 157/72; PULSE 80; RESP 17; TEMP 36.5; O2SAT 97
[2017-12-15] MEDS: OXYCODONE IR 10 MG TABLET PO ×4 (05:48→20:39)
[2017-12-15] MEDS: PANTOPRAZOLE 40 MG TABLET PO ×2 (05:48→20:14)
[2017-12-15] MEDS: DEXAMETHASONE 4 MG TABLET PO ×2 (05:48→12:57)
[2017-12-15 07:35] VITALS: BP 144/67; PULSE 75; RESP 16; TEMP 36.6; O2SAT 99
[2017-12-15] MEDS: INSULIN ASPART 100 UNIT/ML INSULN PEN SUBCUT ×4 (08:07→20:40)
[2017-12-15] MEDS: INSULIN ASPART 100 UNIT/ML INSULN PEN 20 UNIT SUBCUT (09:23)
[2017-12-15] MEDS: ATORVASTATIN 20 MG TABLET PO (09:27)
[2017-12-15] MEDS: CARVEDILOL 6.25 MG TABLET PO ×2 (09:27→20:12)
[2017-12-15] MEDS: DULOXETINE 30 MG CAPSULE 60 MG PO (09:28)
--- NOTE | 2017-12-15 09:28 | PM.PN.1 ---
Subjective Date Patient Seen: 12/15/17 Time Patient Seen: 08:40 Interval history: Patient's blood sugars are in the mid to high 200s today after she was put on dexamethasone by the orthopedic service yesterday. She reports improved back pain and otherwise has no specific complaints. Exam Vital Signs (past 8 hours): - 12/15/17 05:00 12/15/17 07:35 Temperature 97.7 F 97.9 F Pulse Rate 80 75 Respiratory Rate 17 16 Blood Pressure 157/72 H 144/67 H Pulse Oximetry 97 99 Oxygen Delivery Method Room Air Oxygen Flow Rate 0 Narrative Exam Narrative: General: Obese female, mildly somnolent, stating moderate back pain appearing uncomfortable HEENT: Pupils 1 mm, round, reactive Neck: Supple Lungs: Clear to auscultation Cardiac: Regular rate and rhythm with grade 3/6 systolic murmur Abdomen: Soft, nontender, obese Extremities: Without edema Genitourinary: Navarrete catheter in place Neurologic: Absent sensation below the knees due to chronic diabetic peripheral neuropathy, otherwise normal sensation and motor function Objective Labs Result Diagrams: 12/14/17 04:45 Assessment & Plan Plan: Assessment/Plan Narrative: 1. Diabetes mellitus, type 2. Worsened control with steroid induced hyperglycemia. Increase insulin dosing today. Monitor with advancing diet. Continue routine insulin with sliding scale coverage. 2. Hypertension. Appears adequately controlled. Continue routine medication. 3. Rheumatoid arthritis. Continue routine antirheumatic medications. She does not need to receive Orencia, however, while in the hospital. 4. Lumbar spinal stenosis, status post lumbar fusion 12/13/2017. Management per Orthopedics and Physical therapy. The hospitalist service wishes to thank the Orthopedic Services for consulting us on this delightful patient. Will follow with you during hospitalization. Quality VTE Deep Vein Thrombosis/Pulmonary Embolism Present on Admission: No
[2017-12-15] MEDS: FERROUS SULFATE 325 MG TABLET PO (09:29)
[2017-12-15] MEDS: HYDROXYCHLOROQUINE 200 MG TABLET 400 MG PO (09:29)
[2017-12-15] MEDS: LISINOPRIL 5 MG TABLET PO (09:29)
[2017-12-15] MEDS: LEFLUNOMIDE 20 MG TABLET PO (09:29)
[2017-12-15] MEDS: SPIRONOLACTONE 25 MG TABLET PO (09:30)
[2017-12-15] MEDS: PREGABALIN 50 MG CAPSULE 200 MG PO ×3 (09:30→20:14)
[2017-12-15] MEDS: hydrOXYzine pamoate 25 MG CAPSULE PO (09:42)
[2017-12-15] MEDS: ACETAMINOPHEN 325 MG TABLET 650 MG PO ×2 (09:42→17:03)
--- NOTE | 2017-12-15 11:25 | PT.IPTN ---
Current Diagnoses Spondylolisthesis, lumbar region (12/13/17) Other spondylosis with radiculopathy, lumbar region (12/13/17) Surgery Performed Operation Date: 12/13/17 07:45 Actual Procedures p L34-, L4-5, L5-S1 TLIF w/Posterior Instru(Not Applicable) - Amanda Franklin MD Physical Therapy Treatment Note M2 PT-IP Current Condition Start: 12/14/17 12:15 Freq: NEEDED Status: Active Protocol: Document 12/15/17 11:25 [facility] (Rec: 12/15/17 12:44 [facility] [email or web address]) Physical Therapy Current Condition Current Condition Evaluation Date 12/14/17 Treatment Diagnosis s/p L3-4, L4-5, L5S1 TLIF and laminectomy; generalized weakness Onset Date 12/13/17 Precautions Lumbar Precautions Log Roll No Twisting Limit Bending Lifting Restriction of 10 lbs Gait Belt above Incisional Area Weight Bearing Status Weight Bearing Status Full Weight Bearing M3 PT-IP Subjective Start: 12/14/17 12:15 Freq: NEEDED Status: Active Protocol: Document 12/15/17 11:25 [facility] (Rec: 12/15/17 12:44 [facility] [email or web address]) Subjective Physical Therapy Visit Type Type Treatment Note Visit Start Time 10:55 Visit Stop Time 11:25 Total Visit Minutes 30 Notes this session was performed as a joint PT and OT session, with Melinda OT Number of BUCKLE STRAP PUNCHER Visits 0 Physical Therapy Visit Comments Patient Comments Pt agreeable to get OOB. Therapy Pain Assessment Pain When Pain Assessed At Rest Pain Present Pain Present Pain Reported Location Bilateral Hip Intensity 7 Scale Used Numeric (1 - 10) Lower Back Intensity 7 Scale Used Numeric (1 - 10) M4 PT-IP Mobility and Gait Start: 12/14/17 12:15 Freq: NEEDED Status: Active Protocol: Document 12/15/17 11:25 [facility] (Rec: 12/15/17 12:44 [facility] [email or web address]) PT-Bed Mobility Assessment Rolling Type of Rolling Log Rolling Roll to Left Level of Assist Maximal Assistance 2 Person Assistance Supine to Sit Supine to Sit Maximum Assistance 2 Person Assistance Scooting Scooting to Edge of Bed Maximum Assistance PT-Transfer Assessment Sit to and From Stand Sit to and from Stand Maximum Assistance 2 Person Assistance Use of Upper Extremities Transfers Transfer Destination Chair Transfer Technique Stand Pivot Transfer Ability Level of Assist Maximum Assistance 2 Person Assistance Comments Mobility Comments chair placed directly in front of pt (pt's request) to mimic her home situation transfer from bed with power w/c. Gait Assessment Comments Gait Comments not ambulatory PT-Balance Assessment Sitting Balance and Reactions Static Sitting Balance Ability Fair Dynamic Sitting Balance Ability Poor Standing Balance and Reactions Static Standing Balance Ability Poor Dynamic Standing Balance Ability Poor M5 PT-IP Objective Assessments Start: 12/14/17 12:15 Freq: NEEDED Status: Active Protocol: Document 12/14/17 11:00 AB (Rec: 12/14/17 12:28 AB [id number]) Orientation Orientation/Cognition Level of Alertness Alert Orientation Name Situation Safety Awareness Decreased Safety Awareness Memory Description Short Term Impaired Prison Impaired Gross Range of Motion Lower Extremity ROM Assessment Within Functional Limits Strength Lower Extremity Strength Assessment Bilaterally Impaired Hip 2-/5 Knee 2-/5 Ankle 2-/5 Sensation Assessment Sensation Gross Sensation Right LE Impaired Left LE Impaired Light Touch Impaired Proprioception (Position) Impaired Sensation Description Numbness M6 PT-IP Treatment Start: 12/14/17 12:15 Freq: NEEDED Status: Active Protocol: Document 12/15/17 11:25 [facility] (Rec: 12/15/17 12:44 [facility] [email or web address]) Physical Therapy Treatment Education Education Provided Precautions Safety M7 PT-IP Assessment and Plan Start: 12/14/17 12:15 Freq: NEEDED Status: Active Protocol: Document 12/15/17 11:25 [facility] (Rec: 12/15/17 12:44 [facility] [email or web address]) PT Summary Assessment and Plan Summary Assessment Summary POD #2. Pt able to transfer to chair from bed (high to low surface) requiring 2 persons to assist her. Pt carter forward when reaching for the chair, and her LE gave out 2 times prior to making a successful transfer. Pt is not safe to return home, she cannot transfer independently. Frequency of Treatment Frequency Of Treatment Twice a Day Treatment Plan Other Recommendations and Next Treatment sitting balance, standing Focus tolerance, transfers. Recommendations To Nursing Amount of Assist Needed Mechanical Lift Discharge Recommendations PT Discharge Recommendations SNF Rehab
[2017-12-15 11:40] VITALS: BP 131/56; PULSE 76; RESP 16; TEMP 36.3; O2SAT 76
[2017-12-15] MEDS: INSULIN ASPART 100 UNIT/ML INSULN PEN 35 UNIT SUBCUT ×2 (12:01→16:59)
--- NOTE | 2017-12-15 12:14 | OT.IP.TRT ---
Current Diagnoses Spondylolisthesis, lumbar region (12/13/17) Other spondylosis with radiculopathy, lumbar region (12/13/17) Surgery Performed Operation Date: 12/13/17 07:45 Actual Procedures p L34-, L4-5, L5-S1 TLIF w/Posterior Instru(Not Applicable) - Amanda Franklin MD Occupational Therapy Treatment Note M2 OT-IP Current Condition Start: 12/14/17 11:48 Freq: Status: Active Protocol: Document 12/14/17 11:59 [facility] (Rec: 12/14/17 12:30 [facility] [id number]) Occupational Therapy Current Condition Current Condition Evaluation Date 12/14/17 Treatment Diagnosis Lumbar spinal stenosis Post Operative Precautions Lumbar Precautions Log Roll No Twisting Limit Bending Lifting Restriction of 10 lbs Gait Belt above Incisional Area Weight Bearing Status Weight Bearing Status Full Weight Bearing M3 OT- IP Subjective and Pain Start: 12/14/17 11:48 Freq: Status: Active Protocol: Document 12/15/17 11:51 [facility] (Rec: 12/15/17 12:13 [facility] [id number]) OT- Subjective Occupational Therapy Visit Type Type Treatment Note Visit Start Time 10:55 Visit Stop Time 11:40 Total Visit Minutes 45 Occupational Therapy Visit Comments Patient/Caregiver Goals Pt wanting to go home versus skilled rehab. However, starting to realize may need to go to rehab. OT Pain Assessment Pain When Pain Assessed At Rest Pain Present Pain Present Pain Reported Location Bilateral Hip Intensity 7 Scale Used Numeric (1 - 10) M4 OT- IP ADL's Start: 12/14/17 11:48 Freq: Status: Active Protocol: Document 12/15/17 11:51 [facility] (Rec: 12/15/17 12:13 [facility] [id number]) OT [id number] Comments OT Self-Feeding Comments Pt states able to eat her breakfast on her own. OT ADL-Grooming General Evaluation Grooming Ability Moderate Assistance Comments OT Grooming Comments Pt able to wash her face, brush her teeth with set-up and adapted handle for toothbrush bu t needing assist for completeness for her hair while sitting in the recliner . OT ADL-Dressing General Eval Lower Body Dressing Ability Total Assistance Areas Needing Assistance Retrieving/Set-up of Clothing Socks M6 OT- IP Functional Cognition Start: 12/14/17 11:48 Freq: Status: Active Protocol: Document 12/15/17 11:51 [facility] (Rec: 12/15/17 12:13 [facility] [id number]) Cognitive Factors Limiting Selfcare Function Cognitive Ability Level of Alertness Alert Patient Orientation Name Place Situation Attention Span Ability Capable of Focused Attention Capable of Sustained Attention Ability to Follow Commands Able to Follow One Step Commands Safety Awareness Decreased Recall of Precautions Underestimates Need for Assistance Cognitive Comments Cognitive Assessment Comments Pt a bit clearer today and able to recall prior needs more accurately. Pt needing step by step instructions for transfers and safety of back precautions. OT- Vision and Hearing OT- Hearing Assessment OT- Hearing Assessment WFL M7 OT- IP Mobility and Balance Start: 12/14/17 11:48 Freq: Status: Active Protocol: Document 12/15/17 11:51 [facility] (Rec: 12/15/17 12:13 [facility] [id number]) OT- Bed Mobility Assessment Rolling Type of Rolling Roll to Left Level of Assistance Total Assistance Supine to Sit Supine to Sit Assist Maximum Assistance 2 Person Assistance Scooting Scooting to Edge of Bed Maximum Assistance 2 Person Assistance OT-Transfer Assessment Sit to and From Stand Sit to and from Stand Maximum Assistance 2 Person Assistance Transfers Transfer Ability Maximum Assistance 2 Person Assistance Technique Transfer Destination Chair Transfer Technique Stand Step Pivot Devices Transfer Assistive Devices Gait Belt Comments Mobility Comments MAX A x2 to stand, however not able to stand up completely , had to hang on to armrest directly in front of her and hand rail MAX A x 2 for balance, assist to stand and help turn to the recliner. OT- Balance Assessment Comments Other Balance Tests/Deviations/Treatment Pt able to use bed handle to : sit at the edge of the bed. M8 OT- IP Objective Assessments Start: 12/14/17 11:48 Freq: Status: Active Protocol: Document 12/15/17 11:51 [facility] (Rec: 12/15/17 12:13 [facility] [id number]) OT Gross Range of Motion Upper Extremity Range of Motion ROM Impairments Pt using bilateral hands , right arm is weaker than left arm. Per pt BUE have tremors and not able to write anymore and has trouble with coordination. M9 OT- IP Assessment and Plan Start: 12/14/17 11:48 Freq: Status: Active Protocol: Document 12/15/17 11:51 [facility] (Rec: 12/15/17 12:13 [facility] [id number]) OT Summary Assessment and Plan Potential Rehabilitation Potential Fair Analytic Complexity at Evaluation Moderate Summary OT Impairments Pain Range of Motion Strength Balance Coordination Sensation Functional Cognition Functional Mobility Self-Feeding Grooming Dressing Toileting Bathing Toilet Transfers Shower Transfers Progress Towards Goals Slow Progress due to Pain Slow Progress due to Medical Issues Slow Progress due to Activity Tolerance Assessment Summary Pt able to get up to the chair with MAX A x2 and another person to to hold the recliner . Pt continues to need extensive assist and would benefit from skilled rehab. Goals Self-Feeding Goal Standby Assistance Grooming Goal Standby Assistance Patient/Caregiver Education Goal Caregiver Independent Assisting Patient OT-Other Goals Pt to be able to do stand pivot transfer with MAX A x1 to BSC and recliner. Days to Meet Goals 7 Frequency of Treatment Frequency Of Treatment Once a Day Treatment Plan OT Treatment Plan ADL Training Functional Cognition Training Functional Mobility Patient/Family Education Discharge Planning Discharge Recommendations OT Discharge Recommendations SNF Rehab
--- NOTE | 2017-12-15 12:16 | CM.DPNOTE ---
Per OT/PT: patient will benefit from SNF at discharge. Met with patient: Patient agreeable to SNF with preference towards [facility]. Patient is eligible for Medicare SNF [facility] effective SaturdayDecember 16. [facility] faxed referral to [facility].
[2017-12-15] MEDS: FLUTICASONE 120 SPRAY/16 GM SPRAY.SUSP NASAL (13:00)
--- NOTE | 2017-12-15 13:03 | PM.PNPO.1 ---
Subjective Date Patient Seen: 12/15/17 Time Patient Seen: 11:27 Interval history: She notes that she is doing better. She continues to have significant problems with pain control. She was taking oxycodone 10 mg every 4 hr prior to surgery. She normally is a wheelchair ambulator but is able to transfer for at home. She does have 2 full-time caregivers and an assistive daughter. Exam Vital Signs (past 8 hours): - 12/15/17 07:35 12/15/17 11:40 Temperature 97.9 F 97.4 F L Pulse Rate 75 76 Respiratory Rate 16 16 Blood Pressure 144/67 H 131/56 H Pulse Oximetry 99 76 L Oxygen Delivery Method Room Air Oxygen Flow Rate 0 Narrative Exam Narrative: Dressing is dry and intact, she is alert she is oriented she is appropriate, abdomen soft and benign, bilateral calfs are soft. She has with weakness which she had preoperatively in bilateral lower extremities. Her strength and numbness are unchanged from preoperatively. Objective Labs Result Diagrams: 12/14/17 04:45 Assessment & Plan Post-op Postoperative Procedures Operation Date: 12/13/17 07:45 Actual Procedures Side Surgeon p L34-, L4-5, L5-S1 TLIF w/Posterior Instru Not Applicable Amanda Franklin MD Postoperative status: doing well (She is making progress with physical therapy we will work on transfers out of bed today. Anticipate discharge to either [facility] for home tomorrow.) and marginal pain control Postoperative plan: routine post-op care Time Spent With Patient less than 15 minutes Quality VTE Deep Vein Thrombosis/Pulmonary Embolism Present on Admission: No
--- NOTE | 2017-12-15 13:07 | P.PN_ITS ---
Subjective Date Patient Seen: 12/15/17 Time Patient Seen: 11:27 Interval history: She notes that she is doing better. She continues to have significant problems with pain control. She was taking oxycodone 10 mg every 4 hr prior to surgery. She normally is a wheelchair ambulator but is able to transfer for at home. She does have 2 full-time caregivers and an assistive daughter. Exam Vital Signs (past 8 hours): - 12/15/17 07:35 12/15/17 11:40 Temperature 97.9 F 97.4 F L Pulse Rate 75 76 Respiratory Rate 16 16 Blood Pressure 144/67 H 131/56 H Pulse Oximetry 99 76 L Oxygen Delivery Method Room Air Oxygen Flow Rate 0 Narrative Exam Narrative: Dressing is dry and intact, she is alert she is oriented she is appropriate, abdomen soft and benign, bilateral calfs are soft. She has with weakness which she had preoperatively in bilateral lower extremities. Her strength and numbness are unchanged from preoperatively. Objective Labs Result Diagrams: 12/14/17 04:45 Assessment & Plan Post-op Postoperative Procedures Operation Date: 12/13/17 07:45 Actual Procedures Side Surgeon p L34-, L4-5, L5-S1 TLIF w/Posterior Instru Not Applicable Amanda Franklin MD Postoperative status: doing well (She is making progress with physical therapy we will work on transfers out of bed today. Anticipate discharge to either [facility] for home tomorrow.) and marginal pain control Postoperative plan: routine post-op care Time Spent With Patient less than 15 minutes Quality VTE Deep Vein Thrombosis/Pulmonary Embolism Present on Admission: No
--- NOTE | 2017-12-15 13:52 | PT.IPTN ---
Current Diagnoses Spondylolisthesis, lumbar region (12/13/17) Other spondylosis with radiculopathy, lumbar region (12/13/17) Surgery Performed Operation Date: 12/13/17 07:45 Actual Procedures p L34-, L4-5, L5-S1 TLIF w/Posterior Instru(Not Applicable) - Amanda Franklin MD Physical Therapy Treatment Note M2 PT-IP Current Condition Start: 12/14/17 12:15 Freq: NEEDED Status: Active Protocol: Document 12/15/17 13:52 [facility] (Rec: 12/15/17 14:50 [facility] [id number]) Physical Therapy Current Condition Current Condition Evaluation Date 12/14/17 Treatment Diagnosis s/p L3-4, L4-5, L5S1 TLIF and laminectomy; generalized weakness Onset Date 12/13/17 Precautions Lumbar Precautions Log Roll No Twisting Limit Bending Lifting Restriction of 10 lbs Gait Belt above Incisional Area Weight Bearing Status Weight Bearing Status Full Weight Bearing M3 PT-IP Subjective Start: 12/14/17 12:15 Freq: NEEDED Status: Active Protocol: Document 12/15/17 13:52 [facility] (Rec: 12/15/17 14:50 [facility] [id number]) Subjective Physical Therapy Visit Type Type Treatment Note Visit Start Time 13:28 Visit Stop Time 13:52 Total Visit Minutes 24 Number of RIGGER THIRD Visits 0 Physical Therapy Visit Comments Patient Comments Pt wants back to bed. Therapy Pain Assessment Pain When Pain Assessed At Rest Pain Present Pain Present Pain Reported Location Lower Back Intensity 7 Scale Used Numeric (1 - 10) M4 PT-IP Mobility and Gait Start: 12/14/17 12:15 Freq: NEEDED Status: Active Protocol: Document 12/15/17 13:52 [facility] (Rec: 12/15/17 14:50 [facility] [id number]) PT-Bed Mobility Assessment Rolling Type of Rolling Log Rolling Level of Assist Moderate Assistance 2 Person Assistance PT-Transfer Assessment Sit to and From Stand Sit to and from Stand Maximum Assistance 2 Person Assistance Use of Upper Extremities Transfers Transfer Destination Bed Transfer Technique Mechanical Lift Transfer Ability Level of Assist Total Assistance Comments Mobility Comments Attempted to transfer manually with wide FWW, unable to take steps and had bilateral knee buckling. Overhead lift required for transfer back to bed. PT-Balance Assessment Sitting Balance and Reactions Static Sitting Balance Ability Fair Dynamic Sitting Balance Ability Poor Standing Balance and Reactions Static Standing Balance Ability Poor Dynamic Standing Balance Ability Poor M5 PT-IP Objective Assessments Start: 12/14/17 12:15 Freq: NEEDED Status: Active Protocol: Document 12/14/17 11:00 [facility] (Rec: 12/14/17 12:28 [facility] [id number]) Orientation Orientation/Cognition Level of Alertness Alert Orientation Name Situation Safety Awareness Decreased Safety Awareness Memory Description Short Term Impaired Insurance Marketing Specialist Impaired Gross Range of Motion Lower Extremity ROM Assessment Within Functional Limits Strength Lower Extremity Strength Assessment Bilaterally Impaired Hip 2-/5 Knee 2-/5 Ankle 2-/5 Sensation Assessment Sensation Gross Sensation Right LE Impaired Left LE Impaired Light Touch Impaired Proprioception (Position) Impaired Sensation Description Numbness M6 PT-IP Treatment Start: 12/14/17 12:15 Freq: NEEDED Status: Active Protocol: Document 12/15/17 11:25 [facility] (Rec: 12/15/17 12:44 [facility] [id number]) Physical Therapy Treatment Education Education Provided Precautions Safety M7 PT-IP Assessment and Plan Start: 12/14/17 12:15 Freq: NEEDED Status: Active Protocol: Document 12/15/17 13:52 [facility] (Rec: 12/15/17 14:50 [facility] [id number]) PT Summary Assessment and Plan Summary Assessment Summary POD #2. Pt able to stand for ~ 8 seconds with max assist of 2 , bilateral knee buckling using a FWW. She is unable to take functional steps with walker use. Pt required an overhead lift back to bed. Pt is below her functional mobility level, and is at high risk for falls. Pt will require SNF rehabilitation upon d/c. Goals Bed Mobility Goal Moderate Assistance Transfer Goal Moderate Assistance Front Wheeled Walker Days to Meet Goals 3 Frequency of Treatment Frequency Of Treatment Twice a Day Treatment Plan Other Recommendations and Next Treatment review precautions, sitting Focus and standing balance/tolerance . Recommendations To Nursing Amount of Assist Needed Mechanical Lift Discharge Recommendations PT Discharge Recommendations SNF Rehab
--- NOTE | 2017-12-15 15:47 | PC.NURSE ---
Patient is A&O x3, pleasant and cooperative w/ staff and is able to make needs known when nec. Patient congative disposition has greatly improved since yesterday. patient is sitting up in bed, visiting w/ family and friends at bs and going to eat a late lunch. Call light w/ in reach, bed in low pos. alarm active. Patinet wishes to visit and eat and then do assessment, nurse is agreeable to plan. Patient states pain at this time is tolerable and denies any need to pain treatment.
[2017-12-15 16:38] VITALS: BP 119/62; PULSE 75; RESP 16; TEMP 35.6; O2SAT 98
[2017-12-15 20:00] VITALS: BP 112/52; PULSE 71; RESP 16; TEMP 36.2; O2SAT 100
[2017-12-15 20:12] VITALS: BP 112/52; PULSE 93
[2017-12-15] MEDS: PRAMIPEXOLE 0.25 MG TABLET 0.5 MG PO (20:16)
[2017-12-16] VITALS (8 sets, daily range): BP systolic 105–139; BP diastolic 43–72; PULSE 56–69; RESP 16–18; TEMP 36.4–36.7; O2SAT 97–100; BMI 37.6
[2017-12-16] MEDS: DEXAMETHASONE 4 MG TABLET PO ×4 (01:10→21:08)
[2017-12-16] MEDS: OXYCODONE IR 10 MG TABLET PO ×5 (01:11→19:11)
--- NOTE | 2017-12-16 05:45 | PC.NURSE ---
Patient has oxycodone IR 10 mg ordered. Will not scan med since it is 5 mg and I am doing 10 mg each time.
[2017-12-16] MEDS: PANTOPRAZOLE 40 MG TABLET PO ×2 (07:05→21:05)
[2017-12-16] MEDS: hydrOXYzine pamoate 25 MG CAPSULE PO ×3 (08:43→19:11)
[2017-12-16] MEDS: INSULIN ASPART 100 UNIT/ML INSULN PEN SUBCUT ×4 (08:44→21:06)
[2017-12-16] MEDS: INSULIN ASPART 100 UNIT/ML INSULN PEN 20 UNIT SUBCUT (08:45)
[2017-12-16] MEDS: PREGABALIN 50 MG CAPSULE 200 MG PO ×3 (09:24→21:07)
[2017-12-16] MEDS: DULOXETINE 30 MG CAPSULE 60 MG PO (09:24)
[2017-12-16] MEDS: ATORVASTATIN 20 MG TABLET PO (09:25)
[2017-12-16] MEDS: FERROUS SULFATE 325 MG TABLET PO (09:25)
[2017-12-16] MEDS: CARVEDILOL 6.25 MG TABLET PO ×2 (09:25→21:05)
[2017-12-16] MEDS: HYDROXYCHLOROQUINE 200 MG TABLET 400 MG PO (09:25)
[2017-12-16] MEDS: LISINOPRIL 5 MG TABLET PO (09:25)
[2017-12-16] MEDS: LEFLUNOMIDE 20 MG TABLET PO (09:25)
[2017-12-16] MEDS: SODIUM CHLORIDE 0.9% FLUSH 10 ML IV ×2 (09:25→21:07)
[2017-12-16] MEDS: SPIRONOLACTONE 25 MG TABLET PO (09:25)
[2017-12-16] MEDS: ACETAMINOPHEN 325 MG TABLET 650 MG PO (09:28)
--- NOTE | 2017-12-16 09:47 | PM.PN.1 ---
Subjective Date Patient Seen: 12/16/17 Time Patient Seen: 09:47 Interval history: She reports slight improvement in her back pain while on the oral opioids, but continues to have a marked amount of discomfort. Exam Vital Signs (past 8 hours): - 12/16/17 05:17 12/16/17 07:57 Temperature 97.6 F 98.1 F Pulse Rate 65 67 Respiratory Rate 17 18 Blood Pressure 121/55 H 132/66 H Pulse Oximetry 98 98 Oxygen Delivery Method Room Air Oxygen Flow Rate 0 Narrative Exam Narrative: Patient lying in bed in no acute distress. Const General: cooperative, healthy appearing and comfortable Nutritional Appearance: obese Orientation: alert, awake and oriented x3 HENMT Head: normal to inspection, normocephalic and atraumatic Eyes General: appearance normal, both eyes and all related structures Pupils: PERRL Neck Neck: normal visual inspection, trachea midline and supple Other: No lymphadenopathy Chest Chest: normal inspection of the chest Resp Effort & Inspection: normal respiratory effort and able to speak in complete sentences Auscultation: clear to auscultation bilaterally Other: Room air Cardio Rate: regular rate Rhythm: regular rhythm Heart Sounds: S1 normal, S2 normal and murmur systolic II/ and at the left sternal border GI Inspection: normal to inspection Palpation: soft Auscultation: normal bowel sounds Other: Passing flatus Other: Unremarkable Skin Other: Healing lesion along anterior aspect of left lower leg. Secondary to mechanical injury at home. Neuro Other: Absent sensation below the knees due to chronic diabetic peripheral neuropathy. Psych Appearance: grossly normal Mental Status: mental status grossly normal Mood: congruent mood Affect: normal affect Attitude: cooperative Thought Process: normal Thought Content: normal Judgment: judgment good Objective Labs Result Diagrams: 12/14/17 04:45 Assessment & Plan Plan: Assessment/Plan Narrative: 1. Diabetes mellitus, type 2. Worsened control with steroid induced hyperglycemia. Despite increasing her insulin doses yesterday she continues to have fingerstick glucose checks prior to meals in the mid to high 200 range. Monitor with advancing diet. Continue routine insulin with sliding scale coverage. 2. Hypertension. Appears adequately controlled. Continue routine medication. 3. Rheumatoid arthritis. Continue routine antirheumatic medications. She does not need to receive Orencia, however, while in the hospital. 4. Lumbar spinal stenosis, status post lumbar fusion 12/13/2017. Patient states she has not done any weight-bearing at post surgery. Management per Orthopedics and Physical therapy. Quality VTE Deep Vein Thrombosis/Pulmonary Embolism Present on Admission: No
--- NOTE | 2017-12-16 10:40 | PT.IPTN ---
Current Diagnoses Spondylolisthesis, lumbar region (12/13/17) Other spondylosis with radiculopathy, lumbar region (12/13/17) Surgery Performed Operation Date: 12/13/17 07:45 Actual Procedures p L34-, L4-5, L5-S1 TLIF w/Posterior Instru(Not Applicable) - Amanda Franklin MD Physical Therapy Treatment Note M2 PT-IP Current Condition Start: 12/14/17 12:15 Freq: NEEDED Status: Active Protocol: Document 12/15/17 13:52 [facility] (Rec: 12/15/17 14:50 [facility] [id number]) Physical Therapy Current Condition Current Condition Evaluation Date 12/14/17 Treatment Diagnosis s/p L3-4, L4-5, L5S1 TLIF and laminectomy; generalized weakness Onset Date 12/13/17 Precautions Lumbar Precautions Log Roll No Twisting Limit Bending Lifting Restriction of 10 lbs Gait Belt above Incisional Area Weight Bearing Status Weight Bearing Status Full Weight Bearing M3 PT-IP Subjective Start: 12/14/17 12:15 Freq: NEEDED Status: Active Protocol: Document 12/16/17 10:32 RS (Rec: 12/16/17 10:40 RS [id number]) Subjective Physical Therapy Visit Type Type Treatment Note Visit Start Time 10:06 Visit Stop Time 10:32 Total Visit Minutes 26 Physical Therapy Visit Comments Patient Comments Pt very uncomfortable in all positions. Therapy Pain Assessment Pain When Pain Assessed At Rest Pain Present Pain Present Pain Reported M4 PT-IP Mobility and Gait Start: 12/14/17 12:15 Freq: NEEDED Status: Active Protocol: Document 12/16/17 10:32 RS (Rec: 12/16/17 10:40 RS [id number]) PT-Bed Mobility Assessment Rolling Type of Rolling Log Rolling Level of Assist Moderate Assistance 2 Person Assistance Supine to Sit Supine to Sit Maximum Assistance 2 Person Assistance Sit to Supine Sit to Supine Total Assistance 2 Person Assistance Scooting Scooting to Edge of Bed Maximum Assistance Scooting Up and Down in Bed Dependent PT-Transfer Assessment Sit to and From Stand Sit to and from Stand Maximum Assistance 2 Person Assistance Use of Upper Extremities Transfers Transfer Destination Bed Chair Transfer Technique Mechanical Lift Gait Assessment Comments Gait Comments not appropriate to assess. Stair Climbing Assessment Comments Stair Climbing Comments not appropriate to assess. PT-Balance Assessment Sitting Balance and Reactions Static Sitting Balance Ability Fair Dynamic Sitting Balance Ability Poor Standing Balance and Reactions Static Standing Balance Ability Poor Dynamic Standing Balance Ability Poor M5 PT-IP Objective Assessments Start: 12/14/17 12:15 Freq: NEEDED Status: Active Protocol: Document 12/14/17 11:00 AB (Rec: 12/14/17 12:28 AB [id number]) Orientation Orientation/Cognition Level of Alertness Alert Orientation Name Situation Safety Awareness Decreased Safety Awareness Memory Description Short Term Impaired Alf Impaired Gross Range of Motion Lower Extremity ROM Assessment Within Functional Limits Strength Lower Extremity Strength Assessment Bilaterally Impaired Hip 2-/5 Knee 2-/5 Ankle 2-/5 Sensation Assessment Sensation Gross Sensation Right LE Impaired Left LE Impaired Light Touch Impaired Proprioception (Position) Impaired Sensation Description Numbness M6 PT-IP Treatment Start: 12/14/17 12:15 Freq: NEEDED Status: Active Protocol: Document 12/15/17 11:25 [facility] (Rec: 12/15/17 12:44 [facility] [id number]) Physical Therapy Treatment Education Education Provided Precautions Safety M7 PT-IP Assessment and Plan Start: 12/14/17 12:15 Freq: NEEDED Status: Active Protocol: Document 12/16/17 10:32 RS (Rec: 12/16/17 10:40 RS [id number]) PT Summary Assessment and Plan Potential Rehabilitation Potential Fair Status of Condition at Evaluation Evolving Summary Impairments Pain ROM Strength Balance Coordination Sensation Tone Cognition Bed Mobility Transfers Gait Activity Tolerance Progress Towards Goals Slow Progress due to Pain Slow Progress due to Medical Issues Slow Progress due to Activity Tolerance Assessment Summary Pt continues to need 2 person max A for standing even short periods of time (a few seconds ) and is unable to complete a manual transfer. Patient significantly below reported functional baseline but has potential for functional improvement. Pt will benefit from transition to SNF rehab for optimization of safe mobility. Due to patient's impaired sitting balance and poor sitting tolerance (Pt cannot tolerate a fully upright seated position for more than a few minutes), transportation to SNF via ambulance is recommended. Frequency of Treatment Frequency Of Treatment Discharge Recommendations To Nursing Amount of Assist Needed Mechanical Lift Discharge Recommendations PT Discharge Recommendations SNF Rehab
[2017-12-16] MEDS: INSULIN ASPART 100 UNIT/ML INSULN PEN 35 UNIT SUBCUT ×2 (11:58→16:57)
--- NOTE | 2017-12-16 14:17 | P.PN_ITS ---
Subjective Date Patient Seen: 12/16/17 Time Patient Seen: 07:08 Interval history: Patient's pain is moderate. Pain improved compared to yesterday. Denies fever chills. Normally wheelchair ambulator does have 2 full -time caregivers at home. We discussed discharge to retirement facility versus home today. Patient feels like she should go to retirement facility secondary to upper and lower extremity weakness, limited mobility. Exam Vital Signs (past 8 hours): - 12/16/17 07:57 12/16/17 12:00 Temperature 98.1 F Pulse Rate 67 69 Respiratory Rate 18 16 Blood Pressure 132/66 H 138/59 H Pulse Oximetry 98 100 Oxygen Delivery Method Room Air Oxygen Flow Rate 0 Narrative Exam Narrative: 72-year-old female resting comfortably in bed in no apparent distress lumbar dressing is clean, dry and intact. Sensation grossly intact to light touch bilateral lower extremities. Motor functions intact bilateral lower extremities. Objective Labs Result Diagrams: 12/14/17 04:45 Assessment & Plan Post-op Postoperative Procedures Operation Date: 12/13/17 07:45 Actual Procedures Side Surgeon p L34-, L4-5, L5-S1 TLIF w/Posterior Instru Not Applicable Amanda Franklin MD Postop day 3. Patient's pain is better controlled with the addition of dexamethasone. Hospitalist has seen the patient in consultation regarding her diabetes. Patient also has significant comorbidities that their assisting with management. The patient is slow to progress secondary to limited mobility. Patient has diabetic peripheral neuropathy with numbness below her knees. Patient was hypotensive and hypoxic after surgery requiring further treatment. Physical therapist has recommended retirement facility for further rehabilitation after discharge. Patient's requiring moderate assist. Patient improved this morning and agree with physical therapy regarding need for further rehabilitation and discharged to retirement facility. The discharge process was started however her home medication list in the electronic medical records is not accurate. We will need to obtain a clear history of her home meds prior to being able to discharge patient to retirement facility. Patient's primary care provider has been contacted and will provide an updated full med list so we can proceed with discharge. Time Spent With Patient less than 15 minutes Quality VTE Deep Vein Thrombosis/Pulmonary Embolism Present on Admission: No
--- NOTE | 2017-12-16 15:47 | OT.IP.TRT ---
Current Diagnoses Spondylolisthesis, lumbar region (12/13/17) Other spondylosis with radiculopathy, lumbar region (12/13/17) Surgery Performed Operation Date: 12/13/17 07:45 Actual Procedures p L34-, L4-5, L5-S1 TLIF w/Posterior Instru(Not Applicable) - Amanda Franklin MD Occupational Therapy Treatment Note M2 OT-IP Current Condition Start: 12/14/17 11:48 Freq: Status: Active Protocol: Document 12/14/17 11:59 [facility] (Rec: 12/14/17 12:30 [facility] [id number]) Occupational Therapy Current Condition Current Condition Evaluation Date 12/14/17 Treatment Diagnosis Lumbar spinal stenosis Post Operative Precautions Lumbar Precautions Log Roll No Twisting Limit Bending Lifting Restriction of 10 lbs Gait Belt above Incisional Area Weight Bearing Status Weight Bearing Status Full Weight Bearing M3 OT- IP Subjective and Pain Start: 12/14/17 11:48 Freq: Status: Active Protocol: Document 12/16/17 15:40 [facility] (Rec: 12/16/17 15:47 [facility] [id number]) OT- Subjective Occupational Therapy Visit Type Type Treatment Note Visit Start Time 15:05 Visit Stop Time 15:35 Total Visit Minutes 30 OT Pain Assessment Pain When Pain Assessed At Rest Pain Present Pain Present Pain Reported Location Lower Back Intensity 8 Scale Used Numeric (1 - 10) M4 OT- IP ADL's Start: 12/14/17 11:48 Freq: Status: Active Protocol: Document 12/15/17 11:51 [facility] (Rec: 12/15/17 12:13 [facility] [id number]) OT [id number] Comments OT Self-Feeding Comments Pt states able to eat her breakfast on her own. OT ADL-Grooming General Evaluation Grooming Ability Moderate Assistance Comments OT Grooming Comments Pt able to wash her face, brush her teeth with set-up and adapted handle for toothbrush bu t needing assist for completeness for her hair while sitting in the recliner . OT ADL-Dressing General Eval Lower Body Dressing Ability Total Assistance Areas Needing Assistance Retrieving/Set-up of Clothing Socks M6 OT- IP Functional Cognition Start: 12/14/17 11:48 Freq: Status: Active Protocol: Document 12/15/17 11:51 [facility] (Rec: 12/15/17 12:13 [facility] [id number]) Cognitive Factors Limiting Selfcare Function Cognitive Ability Level of Alertness Alert Patient Orientation Name Place Situation Attention Span Ability Capable of Focused Attention Capable of Sustained Attention Ability to Follow Commands Able to Follow One Step Commands Safety Awareness Decreased Recall of Precautions Underestimates Need for Assistance Cognitive Comments Cognitive Assessment Comments Pt a bit clearer today and able to recall prior needs more accurately. Pt needing step by step instructions for transfers and safety of back precautions. OT- Vision and Hearing OT- Hearing Assessment OT- Hearing Assessment WFL M7 OT- IP Mobility and Balance Start: 12/14/17 11:48 Freq: Status: Active Protocol: Document 12/15/17 11:51 [facility] (Rec: 12/15/17 12:13 [facility] [id number]) OT- Bed Mobility Assessment Rolling Type of Rolling Roll to Left Level of Assistance Total Assistance Supine to Sit Supine to Sit Assist Maximum Assistance 2 Person Assistance Scooting Scooting to Edge of Bed Maximum Assistance 2 Person Assistance OT-Transfer Assessment Sit to and From Stand Sit to and from Stand Maximum Assistance 2 Person Assistance Transfers Transfer Ability Maximum Assistance 2 Person Assistance Technique Transfer Destination Chair Transfer Technique Stand Step Pivot Devices Transfer Assistive Devices Gait Belt Comments Mobility Comments MAX A x2 to stand, however not able to stand up completely , had to hang on to armrest directly in front of her and hand rail MAX A x 2 for balance, assist to stand and help turn to the recliner. OT- Balance Assessment Comments Other Balance Tests/Deviations/Treatment Pt able to use bed handle to : sit at the edge of the bed. M8 OT- IP Objective Assessments Start: 12/14/17 11:48 Freq: Status: Active Protocol: Document 12/16/17 15:40 [facility] (Rec: 12/16/17 15:47 [facility] [id number]) OT Strength Comments Strength Comments Pt shown theraputty for BUE strengthening as pt having trouble with hand strength for eating to use of utensil and to squeeze lotion bottle. Gentle ROM for Pt's right forearm, wrist , and fingers. M9 OT- IP Assessment and Plan Start: 12/14/17 11:48 Freq: Status: Active Protocol: Document 12/16/17 15:40 [facility] (Rec: 12/16/17 15:47 [facility] [id number]) OT Summary Assessment and Plan Potential Rehabilitation Potential Fair Analytic Complexity at Evaluation Moderate Summary OT Impairments Pain Range of Motion Strength Balance Coordination Sensation Functional Cognition Functional Mobility Self-Feeding Grooming Dressing Toileting Bathing Toilet Transfers Shower Transfers Progress Towards Goals Slow Progress due to Pain Slow Progress due to Medical Issues Slow Progress due to Activity Tolerance Assessment Summary Able to initiate relaxation for deep breathing, educated pt of what to expect for skilled rehab, questions to ask and to be proactive with her care. Pt continues to need extensive assist for all needs. Pt looking to go to skilled rehab soon. Goals Self-Feeding Goal Standby Assistance Grooming Goal Standby Assistance OT-Other Goals COnitnue to work on relaxations, ADL's, transfers and increasing overall strength. Days to Meet Goals 7 Frequency of Treatment Frequency Of Treatment Once a Day Treatment Plan OT Treatment Plan ADL Training Functional Cognition Training Functional Mobility Patient/Family Education Discharge Planning Discharge Recommendations OT Discharge Recommendations SNF Rehab
--- NOTE | 2017-12-16 16:11 | CM.DPC ---
DCP/continued: Reviewed chart. Received notification from [facility] staff that patient okay to d/c to SNF today. [facility] SNF choice is [facility]. Placed call to [facility], spoke with Jigna she reports that they can accept. RUKHSANA/Namita reports that patient refusing to sign [facility] because she is not sure if she wants to appeal her discharge? ORCHESTRATOR met with patient and daughter/Annmarie at bedside explained role. Patient appears anxious about going to SNF. Explained appeal process to both patient and daughter and patient now reports that she would like to go to [facility]. Patient indicates that she has been to SNF in the past and she is nervous about returning because she felt neglected. Daughter assured patient that family would be following closely and advocating on her behalf. Patient appeared much more comfortable with daughter present. Spoke with RN and he reports that orders for discharge have been submitted but not finalized in EMR. Therefore, MD/PA will need to complete prior to discharge. It is now anticipated that patient will most likely not leave till 12-17-17. [facility] notified and aware and agreeable to accept tomorrow. Spoke with therapy and they report patient will require non-urgent BLS transport secondary to spine precautions. P: Anticipate d/c to [facility] once all orders finalized in EMR which is expected on 12-17-17. RAI Fuller
[2017-12-16] MEDS: PRAMIPEXOLE 0.25 MG TABLET 0.5 MG PO (19:12)
[2017-12-16] MEDS: DOCUSATE 100 MG CAPSULE PO (21:05)
[2017-12-16] MEDS: LORATADINE 10 MG TABLET PO (21:06)
[2017-12-16] MEDS: SENNOSIDES 8.6 MG TABLET 17.2 MG PO (21:07)
[2017-12-17] MEDS: OXYCODONE IR 10 MG TABLET PO ×4 (01:23→11:59)
[2017-12-17] MEDS: hydrOXYzine pamoate 25 MG CAPSULE PO ×3 (01:24→09:12)
[2017-12-17 03:45] VITALS: BP 153/74; PULSE 57; RESP 16; TEMP 36.1; O2SAT 99
[2017-12-17] MEDS: HYDROMORPHONE 2 MG TABLET PO (03:45)
[2017-12-17] MEDS: DEXAMETHASONE 4 MG TABLET PO (06:38)
[2017-12-17] MEDS: PANTOPRAZOLE 40 MG TABLET PO (06:38)
[2017-12-17 08:00] VITALS: BP 137/66; PULSE 60; RESP 18; TEMP 36.5; O2SAT 97
[2017-12-17] MEDS: INSULIN ASPART 100 UNIT/ML INSULN PEN SUBCUT ×2 (08:44→12:04)
[2017-12-17] MEDS: INSULIN ASPART 100 UNIT/ML INSULN PEN 20 UNIT SUBCUT (08:44)
[2017-12-17] MEDS: ACETAMINOPHEN 325 MG TABLET 650 MG PO (09:12)
[2017-12-17] MEDS: CARVEDILOL 6.25 MG TABLET PO (09:33)
[2017-12-17] MEDS: HYDROXYCHLOROQUINE 200 MG TABLET 400 MG PO (09:34)
[2017-12-17] MEDS: FERROUS SULFATE 325 MG TABLET PO (09:34)
[2017-12-17] MEDS: LISINOPRIL 5 MG TABLET PO (09:35)
[2017-12-17] MEDS: SPIRONOLACTONE 25 MG TABLET PO (09:36)
[2017-12-17] MEDS: SODIUM CHLORIDE 0.9% FLUSH 10 ML IV (09:36)
[2017-12-17] MEDS: ATORVASTATIN 20 MG TABLET PO (09:43)
[2017-12-17] MEDS: PREGABALIN 50 MG CAPSULE 200 MG PO (09:59)
[2017-12-17] MEDS: LEFLUNOMIDE 20 MG TABLET PO (10:00)
[2017-12-17] MEDS: DULOXETINE 30 MG CAPSULE 60 MG PO (10:00)
--- NOTE | 2017-12-17 10:33 | P.PN_ITS ---
Subjective Date Patient Seen: 12/17/17 Time Patient Seen: 10:30 Interval history: Patient's major complaint is still postoperative back pain. She states she is very uncomfortable in all positions. She remains a 2 person assist from sitting to standing position and required a mechanical lift to get her from the chair back into bed. Exam Vital Signs (past 8 hours): - 12/17/17 03:45 12/17/17 08:00 Temperature 97.0 F L 97.7 F Pulse Rate 57 L 60 Respiratory Rate 16 18 Blood Pressure 153/74 H 137/66 H Pulse Oximetry 99 97 Oxygen Delivery Method Room Air Oxygen Flow Rate 0 Narrative Exam Narrative: Patient lying in bed in no acute distress. Const General: cooperative, healthy appearing and comfortable Nutritional Appearance: obese Orientation: alert, awake and oriented x3 HENMT Head: normal to inspection, normocephalic and atraumatic Eyes General: appearance normal, both eyes and all related structures Pupils: PERRL Neck Neck: normal visual inspection, trachea midline and supple Other: No lymphadenopathy Chest Chest: normal inspection of the chest Resp Effort & Inspection: normal respiratory effort and able to speak in complete sentences Auscultation: clear to auscultation bilaterally Other: Room air Cardio Rate: regular rate Rhythm: regular rhythm Heart Sounds: S1 normal, S2 normal and murmur systolic II/ and at the left sternal border GI Inspection: normal to inspection Palpation: soft Auscultation: normal bowel sounds Other: Passing flatus Other: Unremarkable Skin Other: Posterior lumbar dressing dry and intact. Healing lesion along anterior aspect of left lower leg. Secondary to mechanical injury at home. Neuro Other: Absent sensation below the knees due to chronic diabetic peripheral neuropathy. Psych Appearance: grossly normal Mental Status: mental status grossly normal Mood: congruent mood Affect: normal affect Attitude: cooperative Thought Process: normal Thought Content: normal Judgment: judgment good Objective Labs Result Diagrams: 12/14/17 04:45 Assessment & Plan Plan: Assessment/Plan Narrative: 1. Diabetes mellitus, type 2. Worsened control with steroid induced hyperglycemia. Despite increasing her insulin doses yesterday she continues to have fingerstick glucose checks prior to meals in the high 100 to low 200 range range. Monitor with advancing diet. Continue routine insulin with sliding scale coverage. She will need to have a reduction in her insulin doses once her steroid regimen has been stopped. Will plan on putting her back on her pre- surgical doses once steroids have been discontinued. 2. Hypertension. Appears adequately controlled. Continue routine medication. 3. Rheumatoid arthritis. Continue routine antirheumatic medications. She does not need to receive Orencia, however, while in the hospital. 4. Lumbar spinal stenosis, status post lumbar fusion 12/13/2017. Patient states she has only done minimal weight-bearing post surgery. She was able to transfer without 2 person assist to chair yesterday, but needed a mechanical lift to get her back into bed. Her activity level will be managed per Orthopedics and Physical therapy. Quality VTE Deep Vein Thrombosis/Pulmonary Embolism Present on Admission: No
[2017-12-17 12:00] VITALS: BP 140/66; PULSE 65; RESP 18; TEMP 36.6
[2017-12-17] MEDS: INSULIN ASPART 100 UNIT/ML INSULN PEN 35 UNIT SUBCUT (12:04)
--- NOTE | 2017-12-17 12:07 | PT.IPTN ---
Current Diagnoses Spondylolisthesis, lumbar region (12/13/17) Other spondylosis with radiculopathy, lumbar region (12/13/17) Surgery Performed Operation Date: 12/13/17 07:45 Actual Procedures p L34-, L4-5, L5-S1 TLIF w/Posterior Instru(Not Applicable) - Amanda Franklin MD Physical Therapy Treatment Note Subjective Physical Therapy Visit Type Type Administrative Note Notes Patient will be transferring to a SNF for rehab today. Due to pain/weakness after surgery pt still cannot tolerate upright sitting and will not be able to ride in a wheelchair/cabulance for the 30+minute ride to where the SNF is located. Patient will need to be reclined and supported, therefore, will need to be transported via ambulance to the SNF. Patient is agreeable to this form of transportation.
--- NOTE | 2017-12-17 13:22 | PC.NURSE ---
Day shift: Pt refused removal of IV at this time. 1322.
--- NOTE | 2017-12-17 14:01 | P.DS_ITS ---
History of Present Illness Date Patient Seen: 12/17/17 Time Patient Seen: 08:58 Chief complaint: [id number]/[id number] Narrative: Patient admitted for lumbar spine surgery Discharge Providers Date of admission: 12/13/17 06:21 Primary care physician: Shane Flower MD Consults: 11/20/17 12:05 Consult to Pastoral Services Routine Comment: patient request Consult to Respiratory Therapy Evaluate & Treat Comment: Physician Instructions: Evaluate and treat Consult to Food Sales Clerk Routine Comment: 12/13/17 16:18 Consult to Occupational Therapy Evaluate & Treat Comment: Physician Instructions: Evaluate and treat Consult to Physical Therapy Evaluate & Treat Comment: Physician Instructions: Evaluate and Treat Consult to Physician Routine Comment: Consulting Provider: Cristino Dinh Reason for consultation: Medical management Has provider been notified: Yes 12/13/17 17:39 Consult to Dietitian, Adult Routine Comment: Reason For Exam: states she has had decreased appetite lately Consult to Pastoral Services Routine Comment: would like visitors 12/14/17 07:39 Consult to Respiratory Therapy Evaluate & Treat Comment: Multiple med probs incl. COPD and HALLEY (no CPAP). Physician Instructions: Evaluate and treat Discharge provider: Florencia Mejía PA-C Summary Discharge Diagnosis: Status post lumbar fusion Hospital Course: Christa was admitted for lumbar fusion and she consented to procedure. Her recovery has been slow to ambulate as she was in a wheelchair prior to surgery at baseline. On postop day 4. She was feeling well and ready for discharge to SNF. Cover site dressing applied prior to discharge. Calves were soft, compressible, nontender bilaterally. She has been working with physical therapy. At day of discharge she was able to urinate and eat without assistance. Exam Vital Signs (past 8 hours): - 12/17/17 08:00 Temperature 97.7 F Pulse Rate 60 Respiratory Rate 18 Blood Pressure 137/66 H Pulse Oximetry 97 Oxygen Delivery Method Room Air Oxygen Flow Rate 0 Narrative Exam Narrative: Patient lying in bed in no acute distress. She is alert and oriented x3. Dressing on back changed cover site prior to discharge. Collins left in place. She is able to actively dorsiflex and plantar flex. Calves are soft, compressible, nontender bilaterally. Pulses are symmetrical. Pain well controlled with oxycodone. Denies any nausea, vomiting, chest pain, or shortness of breath. Objective Labs Result Diagrams: 12/14/17 04:45 Discharge Plan Discharge Plan Patient Disposition: SNF Transfer to: [facility] Under care of provider: facility md or pcp Transportation: Cabulance Consult as needed: Dental, Hearing, Mental health, Podiatry and Vision Discharge comment: DC to SNF today. I certify the postop hospital [facility] care is medically necessary on a continuing basis for any conditions for which he/ she received care during this hospitalization.: Yes The receiving facility has agreed to accept transfer and provide medical treatment.: Yes Discharge Med Rec/Prescriptions Prescriptions: New pregabalin 200 mg capsule 200 mg PO TID Qty: 60 RF: 0 acetaminophen 325 mg Tablet 650 mg PO Q6HR PRN (Reason: Pain, Mild (1-3)) Qty: 60 RF: 0 oxycodone 5 mg capsule 5 mg PO Q4-6H PRN (Reason: pain) Qty: 60 RF: 0 Continue aspirin 81 mg Tablet,Delayed Release (Dr/Ec) 81 mg PO DAILY RF: 0 ferrous sulfate 325 mg (65 mg iron) Tablet 325 mg PO DAILY RF: 0 insulin lispro [Humalog U-100 Insulin] 100 unit/mL Solution 10 unit SUB-Q QAM RF: 0 insulin lispro [Humalog U-100 Insulin] 100 unit/mL Solution 25 unit SUB-Q SEEINSTR RF: 0 fluticasone 50 mcg/actuation [place],Suspension 2 spray INTRANASAL DAILY PRN (Reason: allergies) RF: 0 duloxetine 60 mg Capsule,Delayed Release(Dr/Ec) 60 mg PO DAILY RF: 0 furosemide 40 mg Tablet 20 mg PO DAILY PRN (Reason: Edema) RF: 0 carvedilol 6.25 mg Tablet 6.25 mg PO BID RF: 0 atorvastatin 20 mg Tablet 20 mg PO DAILY RF: 0 betamethasone, augmented 0.05 % Cream 1 applic TOPICAL DAILY RF: 0 omeprazole 40 mg Capsule,Delayed Release(Dr/Ec) 40 mg PO BID RF: 0 leflunomide 20 mg Tablet 20 mg PO DAILY RF: 0 spironolactone 25 mg Tablet 25 mg PO DAILY RF: 0 pramipexole 0.5 mg Tablet 0.5 mg PO SEEINSTR RF: 0 tolnaftate 1 % Cream 1 applic TOPICAL BID RF: 0 hydromorphone 2 mg Tablet 2 mg PO BID PRN (Reason: Breakthrough Pain) RF: 0 fluoxetine 20 mg Tablet 20 mg PO QAM RF: 0 hyoscyamine sulfate 0.125 mg Tablet, Sublingual 0.125 mg PO PRN PRN (Reason: Abdominal Discomfort) RF: 0 nitroglycerin 0.4 mg Tablet, Sublingual 0.4 mg SUBLINGUAL Q5-15M PRN (Reason: Chest Pain) RF: 0 lisinopril 5 mg Tablet 5 mg PO DAILY RF: 0 zolpidem 5 mg Tablet 5 mg PO BEDTIME PRN (Reason: Sleep) RF: 0 nystatin 100,000 unit/gram Powder 1 applic TOPICAL BID PRN (Reason: yeast) RF: 0 hydroxychloroquine 200 mg Tablet 400 mg PO DAILY RF: 0 albuterol sulfate [ProAir HFA] 90 mcg/actuation Hfa Aerosol Inhaler 2 puff INHALATION Q4-6H PRN (Reason: SOB) RF: 0 loratadine 10 mg Tablet 10 mg PO DAILY PRN (Reason: allergies) RF: 0 diclofenac sodium 1 % Gel 2 applic TOPICAL BID PRN (Reason: joint pain) RF: 0 abatacept 125 mg/mL Syringe 125 mg SUB-Q QWEEK RF: 0 insulin glargine 100 unit/mL solution RF: 0 Changed methocarbamol 500 mg tablet 500 mg PO BID Qty: 60 RF: 0 amiodarone 200 mg tablet 200 mg PO BID Qty: 60 RF: 0 Discontinued duloxetine 20 mg Capsule,Delayed Release(Dr/Ec) 60 mg PO DAILY RF: 0 duloxetine [Cymbalta] 60 mg Capsule,Delayed Release(Dr/Ec) 60 mg PO DAILY RF: 0 pregabalin [Lyrica] 200 mg Capsule 200 mg PO TID RF: 0 Follow up/Referrals: Shane Flower MD [Primary Care Provider] - Amanda Franklin MD [Physician] - (Follow up in 10-14 days) Discharge Health Status Brief summary of current health status: Patient slow to recover following lumbar fusion, as well as difficulty managing DM. Multidrug resistant organism: No MDRO MDRO Verified by culture: No Provider Discharge Instructions Diet: Diet as Tolerated Liquid consistency: Normal/Thin Food texture: Regular Activity: No excessive bending, lifting, or twisting. Cold/Heat Therapy: as needed Catheter: 2-way Collins Catheter comment: Leave collins in place until more mobile Wound Care Report to your healthcare provider any signs of infection, such as:: chills, fever and increased pain Dressing: Coversite dressing Special Rehabilitation Services Reason for rehabilitation: Post-operative therapy Rehab type: Physical therapy and Occupational therapy Visit Report/Discharge Packet Instructions: DI for Transforaminal Lumbar Interbody Fusion Stand Alone Forms: Surgery Discharge Discharge Data Primary Care Provider: Shane Flower Attending Provider: Amanda Franklin Admit Date/Time: 12/13/17 06:21 Quality VTE Deep Vein Thrombosis/Pulmonary Embolism Present on Admission: No
--- NOTE | 2017-12-17 14:39 | CM.DPC ---
DCP Cont: Patient to be discharged to [facility] today via BLS transport. Called for transport, and updated Jigna at [facility]. Received signed orders/packet. Faxed packet and rx to [facility], will be included in packet. Left message with daughter, Annmarie. Updated Jigna via pickle water pump operator time at 3:15. Updated patient as well. johan Julien, AC/case supervisor
--- NOTE | 2017-12-17 15:02 | PC.NURSE ---
Day shift: Pt leaving unit w/ BLS. D/c packet w/ meds and instructions w/ BLS persons. Pt has all personal belongings.
== END 2017-12-17 15:06 | DRG 455 ==
LOC: AC 08:58 → ICU 16:41 → AC 12-16 07:52 → ICU 11-04 13:32
PROVIDERS: Admitting Provider Orthopaedic Surgery Orthopaedic Surgery of the Spine; PCP Internal Medicine; Visit Provider Orthopaedic Surgery Orthopaedic Surgery of the Spine
PROC: 0SG10AJ Fusion of 2 or more Lumbar Vertebral Joints with Interbody Fusion Device, Posterior Approach, Anterior Column, Open Approach (ICD-10-PCS; principal; 2017-12-13 07:45)
DX: M48.061 Spinal stenosis, lumbar region without neurogenic claudication (principal); M51.36 Other intervertebral disc degeneration, lumbar region; E66.9 Obesity, unspecified; Z68.37 Body mass index [BMI] 37.0-37.9, adult; G47.33 Obstructive sleep apnea (adult) (pediatric); J44.9 Chronic obstructive pulmonary disease, unspecified; K21.9 Gastro-esophageal reflux disease without esophagitis; E11.40 Type 2 diabetes mellitus with diabetic neuropathy, unspecified; Z79.4 Long term (current) use of insulin; I10 Essential (primary) hypertension; F32.9 Major depressive disorder, single episode, unspecified; F41.9 Anxiety disorder, unspecified; Z99.3 Dependence on wheelchair; M79.7 Fibromyalgia; M06.9 Rheumatoid arthritis, unspecified; M48.07 Spinal stenosis, lumbosacral region; M43.17 Spondylolisthesis, lumbosacral region; M43.16 Spondylolisthesis, lumbar region; M47.26 Other spondylosis with radiculopathy, lumbar region; M47.27 Other spondylosis with radiculopathy, lumbosacral region; I95.9 Hypotension, unspecified; R09.02 Hypoxemia; R73.9 Hyperglycemia, unspecified; T38.0X5A Adverse effect of glucocorticoids and synthetic analogues, initial encounter
CPT/HCPCS: 36415; 36592; 72100; 76001; 82962; 85014; 85018; 94760; 94762; 97162; 97166; 97530; 97535; C1776; C9290; J0131; J0330; J0690; J1170; J2250; J2405; J2704; J3010; J7613

== ENCOUNTER 2017-12-18 19:33 | Observation (INO) | payer MEDICARE, MEDICAID, SELFPAY ==
[2017-12-13 06:47] VITALS: BMI 37.5
--- NOTE | 2017-12-18 20:14 | PC.ADMIT ---
[facility] Admission Note: The patient,Christa Levin,72 y/o, was given written information regarding hospital policies, unit procedures and contact persons. Patient's smoking status: Never smoker.
[2017-12-18 20:45] VITALS: BP 143/87; PULSE 58; RESP 16; TEMP 36.1; O2SAT 99
[2017-12-18 21:01] VITALS: BMI 37.5
[2017-12-18] MEDS: SODIUM CHLORIDE 0.9% FLUSH 10 ML IV (21:27)
[2017-12-18] MEDS: OXYCODONE IR 5 MG TABLET 10 MG PO (21:27)
--- NOTE | 2017-12-18 22:23 | PC.NURSE ---
patient is a&ox3, iv catheter and collins catheter are patent and functional. 99% on ra, patient states pain is 7/10 after being medicated. patient denies nausea, sob, or dizziness. patient states she has a-fib at baseline, hr irregular. bowel tones present. lung sounds diminished. patient is weak in all extremities, but cap refill is less than 2 sec and patient demonstrates she can wiggle toes. dressing to lower back is c/d/i. blood glucose done by Allyson franco. patient resting in bed at this time, verbalizes understanding about not getting up by herself. call light in reach.
--- NOTE | 2017-12-18 22:49 | PM.PN.1 ---
Subjective Date Patient Seen: 12/18/17 Time Patient Seen: 22:09 Interval history: Christa was discharged to [facility]. She notes that when she got to [facility] she had slight increased back pain and some groin and thigh pain. They had some difficulty regulating her blood sugars and giving her insulin. She noted increased weakness when her insulin and was not given and her sugars went over 300. She did not have fevers or chills. She was transferred to [facility] for concern regarding some increased weakness and increased pain. The emergency room physician worked her up with a CT scan of her abdomen which showed a small fluid collection in her back. He did not feel that she was stable for transfer back to the emergency room. They do not have a spine surgeon and then she was transferred back to [facility] for admission and treatment as needed. Exam Vital Signs (past 8 hours): - 12/18/17 20:45 Temperature 97.0 F L Pulse Rate 58 L Respiratory Rate 16 Blood Pressure 143/87 H Pulse Oximetry 99 Narrative Exam Narrative: Alert and oriented appropriate, cor regular rate and rhythm lungs are clear abdomen is soft and slightly tender on with moderate obesity, her incision is healing and her dressings dry. Calfs are soft bilaterally she has moderate weakness in her hip flexors quads and hamstrings bilaterally but no obvious change in comparison to previously. Objective Labs Result Diagrams: 12/19/17 05:07 Assessment & Plan Plan: Assessment/Plan Narrative: Christa is having some increased medical problems and difficulty regulating her blood sugars. Plan is to admit her overnight recheck her white count in the morning attempt to stabilize her diabetes with better glucose control and she probably can be discharged back to the [facility] tomorrow unless she has an increased white count or develops fevers. Quality VTE Deep Vein Thrombosis/Pulmonary Embolism Present on Admission: No
--- NOTE | 2017-12-18 22:55 | P.PN_ITS ---
Subjective Date Patient Seen: 12/18/17 Time Patient Seen: 22:09 Interval history: Christa was discharged to [facility]. She notes that when she got to [facility] she had slight increased back pain and some groin and thigh pain. They had some difficulty regulating her blood sugars and giving her insulin. She noted increased weakness when her insulin and was not given and her sugars went over 300. She did not have fevers or chills. She was transferred to [facility] for concern regarding some increased weakness and increased pain. The emergency room physician worked her up with a CT scan of her abdomen which showed a small fluid collection in her back. He did not feel that she was stable for transfer back to the emergency room. They do not have a spine surgeon and then she was transferred back to [facility] for admission and treatment as needed. Exam Vital Signs (past 8 hours): - 12/18/17 20:45 Temperature 97.0 F L Pulse Rate 58 L Respiratory Rate 16 Blood Pressure 143/87 H Pulse Oximetry 99 Narrative Exam Narrative: Alert and oriented appropriate, cor regular rate and rhythm lungs are clear abdomen is soft and slightly tender on with moderate obesity, her incision is healing and her dressings dry. Calfs are soft bilaterally she has moderate weakness in her hip flexors quads and hamstrings bilaterally but no obvious change in comparison to previously. Objective Labs Result Diagrams: 12/19/17 05:07 Assessment & Plan Plan: Assessment/Plan Narrative: Christa is having some increased medical problems and difficulty regulating her blood sugars. Plan is to admit her overnight recheck her white count in the morning attempt to stabilize her diabetes with better glucose control and she probably can be discharged back to the skilled nursing tomorrow unless she has an increased white count or develops fevers. Quality VTE Deep Vein Thrombosis/Pulmonary Embolism Present on Admission: No
[2017-12-18 23:46] VITALS: BP 136/53; PULSE 54; RESP 16; TEMP 36.4; O2SAT 95
[2017-12-19] MEDS: PRAMIPEXOLE 0.25 MG TABLET 0.5 MG PO (01:47)
[2017-12-19] MEDS: OXYCODONE IR 5 MG TABLET 10 MG PO ×3 (03:42→11:35)
[2017-12-19] MEDS: MAG HYDROX/ALUM/SIMETH 30 ML UDC PO (04:33)
[2017-12-19 04:42] VITALS: BP 149/97; PULSE 63; RESP 18; TEMP 36; O2SAT 97
[2017-12-19 05:50] LABS: Add Manual Diff / Slide Review NO; Eosinophils Percent Auto 1.2 % (2-4); Hematocrit 30.9 % (36-46); Hemoglobin 10.4 g/dL (12.0-16.0); Lymphocytes Percent Auto 7.4 % (25-40); Mean Corpuscular HGB Conc 33.5 % (30-36); Mean Corpuscular Hemoglobin 29.1 PG (26-34); Monocytes Percent Auto 11.9 % (3-14); Neutrophils Absolute Auto 5900 /uL (3000-5900); Neutrophils Percent Auto 79.5 % (50-75); Platelet Count 161 X10^3/uL (150-400); Red Blood Cell Count 3.56 X10^6/uL (4.0-5.2); Red Cell Distribution Width 13.7 % (11.6-14.8); White Blood Cell Count 7.5 X10^3/uL (4.5-11.0)
--- NOTE | 2017-12-19 06:48 | PC.NURSE ---
Pt is AxOx3. Complaining of back & B/L leg pain. Oxycodone IR given for pain relief. Patient complained of gas/indigestion pain, pt was given Maalox. Denies Nausea. Pt is a Fingerstick ACHS. Fingerstick at 0430 was 254. Dressing to back is clean and dry. Reinforcement applied at base, sutures intact. Bruising noted around site. Pt is a 2 person assist, unable to walk or use commode. Bed glover was used and pt had a large soft BM. Pt stated that her Collins was put in on Saturday (the day of her surgery) and it is not a chronic collins. Collins is draining clear yellow urine.
[2017-12-19 08:00] VITALS: BP 153/56; PULSE 57; RESP 14; TEMP 36.8; O2SAT 96
[2017-12-19] MEDS: DULOXETINE 30 MG CAPSULE 60 MG PO (09:11)
[2017-12-19] MEDS: HYOSCYAMINE 0.125 MG TABLET PO (09:11)
[2017-12-19] MEDS: ACETAMINOPHEN 325 MG TABLET 650 MG PO ×2 (09:12→14:01)
[2017-12-19] MEDS: PREGABALIN 50 MG CAPSULE 200 MG PO (09:14)
[2017-12-19] MEDS: FERROUS SULFATE 325 MG TABLET PO (09:14)
[2017-12-19] MEDS: METHOCARBAMOL 500 MG TABLET PO (09:14)
[2017-12-19] MEDS: ASPIRIN EC 81 MG TABLET PO (09:15)
[2017-12-19] MEDS: FLUoxetine 20 MG CAPSULE PO (09:15)
[2017-12-19] MEDS: CARVEDILOL 6.25 MG TABLET PO (09:15)
[2017-12-19] MEDS: HYDROXYCHLOROQUINE 200 MG TABLET 400 MG PO (09:15)
[2017-12-19] MEDS: DOCUSATE 100 MG CAPSULE PO (09:16)
[2017-12-19] MEDS: LORATADINE 10 MG TABLET PO (09:16)
[2017-12-19] MEDS: ATORVASTATIN 20 MG TABLET PO (09:16)
[2017-12-19] MEDS: LISINOPRIL 5 MG TABLET PO (09:16)
[2017-12-19] MEDS: INSULIN ASPART 100 UNIT/ML INSULN PEN 10 UNIT SUBCUT (09:17)
[2017-12-19] MEDS: INSULIN GLARGINE 100 UNIT/ML 3ML PEN 31 UNIT SUBCUT (09:21)
[2017-12-19] MEDS: LEFLUNOMIDE 20 MG TABLET PO (09:22)
[2017-12-19] MEDS: SODIUM CHLORIDE 0.9% FLUSH 10 ML IV (09:22)
[2017-12-19] MEDS: AMIODARONE 200 MG TABLET PO (09:22)
[2017-12-19] MEDS: PANTOPRAZOLE 40 MG TABLET PO (09:23)
--- NOTE | 2017-12-19 09:25 | PM.PNPO.1 ---
Subjective Date Patient Seen: 12/19/17 Time Patient Seen: 09:25 Interval history: Patient was returned to the hospital yesterday after being discharged to [facility] on 12/17/2017. Apparently there was problems with her medication list and specifically her diabetes that is insulin dosing. Had persisting pain to lower back. She apparently was sent to [facility] for a scan of her back. She was returned to [facility] yesterday evening after further treatment with pain control and to sort out her medication. Still has limited mobility. Complains of pain to lower back and bilateral hips right greater than left. Taking oxycodone 1 tablet for pain. As Navarrete catheter in place. She had L3-4 through L5-S1 TLIF, cage, posterior screw fixation done on 12/13/[address] Franklin. Exam Vital Signs (past 8 hours): - 12/19/17 04:42 12/19/17 08:00 Temperature 96.8 F L 98.3 F Pulse Rate 63 57 L Respiratory Rate 18 14 Blood Pressure 149/97 H 153/56 H Pulse Oximetry 97 96 Narrative Exam Narrative: Alert, responsive. In moderate discomfort lying in bed. Back. CovRsite dressing in place with also gauze dressing and Band-Aids. No signs of infection or inflammation. Objective Labs Result Diagrams: 12/19/17 05:07 Labs: Laboratory Results - last 24 hr 12/19/17 05:07 WBC 7.5 RBC 3.56 L Hgb 10.4 L Hct 30.9 L MCV 87.0 MCH 29.1 MCHC 33.5 RDW 13.7 Plt Count 161 Neut % (Auto) 79.5 H Lymph % (Auto) 7.4 L [place] % (Auto) 11.9 Eos % (Auto) 1.2 L Baso % (Auto) 0.0 Neut # (Auto) 5900 Assessment & Plan Post-op (1) S/P lumbar fusion: Current Visit: Yes Status: Acute (2) Diabetes: Current Visit: Yes Status: Acute (3) Fibromyalgia: Current Visit: Yes Status: Acute (4) Afib: Current Visit: No Status: Acute Assessment and plan: Plan: Patient will continue with pain management. Will have evaluation done by Dr. aMriscal regarding her medications and diet diabetes management. An discharged back to [facility] when she is stable. Time Spent With Patient less than 15 minutes Quality VTE Deep Vein Thrombosis/Pulmonary Embolism Present on Admission: No
--- NOTE | 2017-12-19 09:28 | P.PN_ITS ---
Subjective Date Patient Seen: 12/19/17 Time Patient Seen: 09:25 Interval history: Patient was returned to the hospital yesterday after being discharged to [facility] on 12/17/2017. Apparently there was problems with her medication list and specifically her diabetes that is insulin dosing. Had persisting pain to lower back. She apparently was sent to [facility] for a scan of her back. She was returned to [facility] yesterday evening after further treatment with pain control and to sort out her medication. Still has limited mobility. Complains of pain to lower back and bilateral hips right greater than left. Taking oxycodone 1 tablet for pain. As Navarrete catheter in place. She had L3-4 through L5-S1 TLIF, cage, posterior screw fixation done on 12/13/[address] Franklin. Exam Vital Signs (past 8 hours): - 12/19/17 04:42 12/19/17 08:00 Temperature 96.8 F L 98.3 F Pulse Rate 63 57 L Respiratory Rate 18 14 Blood Pressure 149/97 H 153/56 H Pulse Oximetry 97 96 Narrative Exam Narrative: Alert, responsive. In moderate discomfort lying in bed. Back. CovRsite dressing in place with also gauze dressing and Band-Aids. No signs of infection or inflammation. Objective Labs Result Diagrams: 12/19/17 05:07 Labs: Laboratory Results - last 24 hr 12/19/17 05:07 WBC 7.5 RBC 3.56 L Hgb 10.4 L Hct 30.9 L MCV 87.0 MCH 29.1 MCHC 33.5 RDW 13.7 Plt Count 161 Neut % (Auto) 79.5 H Lymph % (Auto) 7.4 L [place] % (Auto) 11.9 Eos % (Auto) 1.2 L Baso % (Auto) 0.0 Neut # (Auto) 5900 Assessment & Plan Post-op (1) S/P lumbar fusion: Current Visit: Yes Status: Acute (2) Diabetes: Current Visit: Yes Status: Acute (3) Fibromyalgia: Current Visit: Yes Status: Acute (4) Afib: Current Visit: No Status: Acute Assessment and plan: Plan: Patient will continue with pain management. Will have evaluation done by Dr. Mariscal regarding her medications and diet diabetes management. An discharged back to [facility] when she is stable. Time Spent With Patient less than 15 minutes Quality VTE Deep Vein Thrombosis/Pulmonary Embolism Present on Admission: No
[2017-12-19] MEDS: SPIRONOLACTONE 25 MG TABLET PO (10:14)
--- NOTE | 2017-12-19 11:50 | PT.IIE ---
Current Diagnoses Type 2 diabetes mellitus without complications (12/18/17) Unspecified atrial fibrillation (12/18/17) Fibromyalgia (12/18/17) Arthrodesis status (12/18/17) Surgical History (Last Reviewed 12/14/17 @ 09:35 by Thom Mohr MD) S/P lumbar fusion (Acute) Medical History (Last Reviewed 12/14/17 @ 09:35 by Thom Mohr MD) Diabetes (Acute) Fibromyalgia (Acute) Depression (Acute) On anticoagulant therapy (Acute) Afib (Acute) Anxiety (Acute) Asthma (Acute) Blepharoconjunctivitis (Acute) CHF (congestive heart failure) (Acute) COPD (chronic obstructive pulmonary disease) (Acute) Cataract fragments in both eyes following surgery (Acute) Chronic low back pain (Acute) Complicated urinary tract infection (Acute) Depression (Acute) Diabetes (Acute) Dizziness (Acute) Dyspnea (Acute) Eczema (Acute) Fatigue (Acute) Fibromyalgia (Acute) GERD (gastroesophageal reflux disease) (Acute) 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) History of GI bleed (Acute) History of UTI (Acute) History of chest pain (Acute) History of headache (Acute) Hypertension (Acute) IBS (irritable bowel syndrome) (Acute) Liver disease (Acute) Memory loss (Acute) Nausea (Acute) Neurogenic bladder (Acute) Neuropathy due to secondary diabetes (Acute) Osteoarthritis (Acute) Osteoporosis (Acute) Ovarian cyst, right (Acute) Paroxysmal A-fib (Acute) Postmenopausal (Acute) Restless leg syndrome (Acute) Rheumatoid arthritis (Acute) Sinus infection (Acute) Sleep apnea (Acute) Sleeping difficulty (Acute) Spinal stenosis (Acute) Ulcer of toe of left foot (Acute) Urinary urgency (Acute) Vulvovaginitis due to yeast (Acute) Yeast dermatitis (Acute) Physical Therapy Inpatient Evaluation/Re-Eval M1 PT/OT-IP Prior Functional Status Start: 12/19/17 12:36 Freq: NEEDED Status: Active Protocol: Document 12/19/17 11:50 AB (Rec: 12/19/17 13:02 AB [id number]) Medical Review Prior Functional Status Medical History Reviewed Yes Mobility and Gait from last eval info: daughter stated that pt was able to transfer by herself onto her electric w/c. Has DALJIT to assist her during the day and her daughter is there to assist her at night. 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 Living Arrangements House Number of Floors (Floors) One Floor Home Environment Standard Height Toilet Walk in Shower Home Equipment Shower Seat without Backrest Grab Bars Near Toilet Grab Bars In Shower Employment Status Retired Additional Social History Comment pt has a power recliner M2 PT-IP Current Condition Start: 12/19/17 12:45 Freq: NEEDED Status: Active Protocol: Document 12/19/17 11:50 AB (Rec: 12/19/17 13:02 AB [id number]) Physical Therapy Current Condition Current Condition Evaluation Date 12/19/17 Treatment Diagnosis weakness Onset Date 12/18/17 Precautions Lumbar Precautions Log Roll No Twisting Limit Bending Lifting Restriction of 10 lbs Gait Belt above Incisional Area Other Precautions falls M3 PT-IP Subjective Start: 12/19/17 12:45 Freq: NEEDED Status: Active Protocol: Document 12/19/17 11:50 AB (Rec: 12/19/17 13:02 AB [id number]) Subjective Physical Therapy Visit Type Type Initial Evaluation Visit Start Time 11:50 Visit Stop Time 12:21 Total Visit Minutes 31 Number of GENERAL MAINTENANCE TECHNICIAN Visits 0 Physical Therapy Visit Comments Patient Comments I cannot stand Therapy Pain Assessment Pain When Pain Assessed At Rest Pain Present Pain Present Pain Reported Location Bilateral Leg Intensity 8 Scale Used Numeric (1 - 10) Pain Management Techniques Timing of Activity with Medications M4 PT-IP Mobility and Gait Start: 12/19/17 12:45 Freq: NEEDED Status: Active Protocol: Document 12/19/17 11:50 AB (Rec: 12/19/17 13:02 AB [id number]) PT-Bed Mobility Assessment Rolling Type of Rolling Roll to Right Level of Assist Maximal Assistance 2 Person Assistance Supine to Sit Supine to Sit Total Assistance 2 Person Assistance Sit to Supine Sit to Supine Total Assistance 2 Person Assistance PT-Transfer Assessment Equipment Transfer Assistive Device Gait Belt Front Wheeled Walker Orthotic/Prosthetic Devices or Brace: No Transfers Transfer Destination Bedside Commode Transfer Technique Stand Pivot Transfer Ability Level of Assist Total Assistance 2 Person Assistance Use of Upper Extremities Comments Mobility Comments pt completed stand pivot transfer using FWW with 2-3 max to total assist bed to bedside commode. pt c/o increase pain and assisted back to bed with stand pivot transfer total A x 2 with pt holding on to PT for support. Gait Assessment Comments Gait Comments unable to ambulate at this time. PT-Balance Assessment Sitting Balance and Reactions Static Sitting Balance Ability Fair Dynamic Sitting Balance Ability Fair Standing Balance and Reactions Static Standing Balance Ability Poor Dynamic Standing Balance Ability Poor Device Used FWW M5 PT-IP Objective Assessments Start: 12/19/17 12:45 Freq: NEEDED Status: Active Protocol: Document 12/19/17 11:50 AB (Rec: 12/19/17 13:02 AB [id number]) Orientation Orientation/Cognition Level of Alertness Alert Orientation Name Situation Safety Awareness Decreased Safety Awareness Memory Description Short Term Impaired Retirement Impaired Strength Lower Extremity Strength Assessment Bilaterally Impaired Hip 3-/5 Knee 3-/5 Ankle 3-/5 M6 PT-IP Treatment Start: 12/19/17 12:45 Freq: NEEDED Status: Active Protocol: Document 12/19/17 11:50 AB (Rec: 12/19/17 13:02 AB [id number]) Physical Therapy Treatment Education Education Provided Precautions Weight Bearing Status Post-Op Packet Safety M7 PT-IP Assessment and Plan Start: 12/19/17 12:45 Freq: NEEDED Status: Active Protocol: Document 12/19/17 11:50 AB (Rec: 12/19/17 13:02 AB [id number]) PT Summary Assessment and Plan Potential Rehabilitation Potential Fair Status of Condition at Evaluation Evolving Summary Impairments Pain ROM Strength Balance Coordination Sensation Tone Cognition Bed Mobility Transfers Gait Activity Tolerance Assessment Summary pt requiring 2-3 person extensive assist with mobility . pt will require SNF rehab to improve mobility and function. Goals Bed Mobility Goal Minimal Assistance Transfer Goal Minimal Assistance Four Wheeled Walker Gait Goal Minimal Assistance Front Wheel Walker Gait Distance 50 Days to Meet Goals 3 Frequency of Treatment Frequency Of Treatment Twice a Day Treatment Plan Physical Therapy Treatment Plan Bed Mobility Training Transfer Training Gait Training Therapeutic Exercise Balance Retraining Post Op Education Discharge Planning Hot or Cold Pack Neuromuscular Re-ed Coordination Retraining Manual Therapy Recommendations To Nursing Amount of Assist Needed 3 or More Person Assist Total Assistance Mechanical Lift Discharge Recommendations PT Discharge Recommendations SNF Rehab
[2017-12-19 12:00] VITALS: BP 157/65; PULSE 65; RESP 12; TEMP 37.2; O2SAT 90
--- NOTE | 2017-12-19 12:09 | PM.CN ---
History of Present Illness Date Patient Seen: 12/19/17 Chief complaint: WEAKNESS, S/P MULTIPLE LEVEL TLIF Reason for consult: Weakness and diabetes control Requesting provider: Radha Coon Narrative: Patient was discharged to nursing home facility on December 17 after admission for elective lumbar surgery. She was sent back to the ER at [facility] last night due to weakness, pain and concern about elevated blood sugars. She is afebrile. Her labs and other vitals are stable. Glucose in 300s on transfer to . [facility] Social History household members: children and caregiver Smoking Status: Never smoker alcohol intake: never Meds Home Medications Medication Instructions Recorded Confirmed Type abatacept 125 mg SUB-Q QWEEK 11/20/17 12/18/17 History albuterol sulfate [ProAir HFA] 2 puff INHALATION Q4-6H PRN 11/20/17 12/18/17 History aspirin 81 mg PO DAILY 11/20/17 12/18/17 History atorvastatin 20 mg PO DAILY 11/20/17 12/18/17 History carvedilol 6.25 mg PO BID 11/20/17 12/18/17 History diclofenac sodium 2 applic TOPICAL BID PRN 11/20/17 12/18/17 History duloxetine 60 mg PO DAILY 11/20/17 12/18/17 History ferrous sulfate 325 mg PO DAILY 11/20/17 12/18/17 History fluoxetine 20 mg PO QAM 11/20/17 12/18/17 History fluticasone 2 spray INTRANASAL DAILY PRN 11/20/17 12/18/17 History furosemide 20 mg PO DAILY PRN 11/20/17 12/18/17 History hydroxychloroquine 400 mg PO DAILY 11/20/17 12/18/17 History hyoscyamine sulfate 0.125 mg PO PRN PRN 11/20/17 12/18/17 History insulin lispro [Humalog U-100 See Label Instructions .ROUTE 11/20/17 12/18/17 History Insulin] .COMPLEX leflunomide 20 mg PO DAILY 11/20/17 12/18/17 History lisinopril 5 mg PO DAILY 11/20/17 12/18/17 History loratadine 10 mg PO DAILY PRN 11/20/17 12/18/17 History nitroglycerin 0.4 mg SUBLINGUAL Q5-15M PRN 11/20/17 12/18/17 History nystatin 1 applic TOPICAL BID PRN 11/20/17 12/18/17 History omeprazole 40 mg PO BID 11/20/17 12/18/17 History pramipexole 0.5 mg PO SEEINSTR 11/20/17 12/18/17 History spironolactone 25 mg PO DAILY 11/20/17 12/18/17 History zolpidem 5 mg PO BEDTIME PRN 11/20/17 12/18/17 History acetaminophen 650 mg PO Q6HR PRN #60 tab 12/17/17 12/18/17 Rx amiodarone 200 mg PO BID #60 tab 12/17/17 12/18/17 Rx insulin glargine [Lantus U-100 See Label Instructions .ROUTE 12/17/17 12/18/17 History Insulin] .COMPLEX methocarbamol 500 mg PO BID #60 tab 12/17/17 12/18/17 Rx pregabalin 200 mg PO TID #60 cap 12/17/17 12/18/17 Rx insulin aspart U-100 [Novolog 0 unit SUB-Q ACHS #15 ml 12/19/17 Rx Flexpen U-100 Insulin] oxycodone See Label Instructions .ROUTE 12/19/17 Rx .COMPLEX PRN #90 cap Allergies Allergy/AdvReac Type Severity Reaction Status Date / Time metformin [METFORMIN] Allergy Severe Hives Verified 12/13/17 07:25 methadone Allergy Severe Hives Verified 12/13/17 07:25 Sulfa (Sulfonamide Allergy Severe Hives Verified 12/13/17 07:25 Antibiotics) sulfasalazine Allergy Severe R/T sulfa Verified 12/13/17 07:25 allergy trazodone Allergy Severe Hives, Verified 12/13/17 07:25 Resp issues, confusion trimethoprim Allergy Intermediate Hives Verified 12/13/17 07:25 etanercept Allergy Mild Rash, Verified 12/13/17 07:25 non-urticarial adalimumab Allergy Unknown Localized Verified 12/13/17 07:25 swelling diflunisal AdvReac Severe May have Verified 12/13/17 07:25 caused renal injury 10/28 bacitracin AdvReac Intermediate Swelling, Verified 12/13/17 07:25 burning amoxicillin AdvReac Unknown Diarrhea Verified 12/13/17 07:25 cefuroxime AdvReac Unknown Diarrhea Verified 12/13/17 07:25 hydroxychloroquine AdvReac Unknown Stopped Verified 12/13/17 07:25 for unknown reason methotrexate AdvReac Unknown oral ulcer Verified 12/13/17 07:25 issues Review of Systems Review of Systems All systems reviewed & are unremarkable except as noted in HPI and below Exam Vital Signs (past 8 hours): - 12/19/17 04:42 12/19/17 08:00 Temperature 96.8 F L 98.3 F Pulse Rate 63 57 L Respiratory Rate 18 14 Blood Pressure 149/97 H 153/56 H Pulse Oximetry 97 96 Narrative Exam Narrative: GENERAL: Patient is in no acute distress HEENT: Head normocephalic, atraumatic. Mucous membranes moist. CHEST: Clear to auscultation bilaterally. CARDIAC: Regular rate and rhythm. ABDOMEN: Nondistended, soft, nontender EXTREMITIES: no edema. NEUROLOGICAL: Alert, pleasant, no focal findings SKIN: Warm, dry, no petechiae, no rash Objective Labs Result Diagrams: 12/19/17 05:07 Labs: Laboratory Results - last 24 hr 12/19/17 05:07 WBC 7.5 RBC 3.56 L Hgb 10.4 L Hct 30.9 L MCV 87.0 MCH 29.1 MCHC 33.5 RDW 13.7 Plt Count 161 Neut % (Auto) 79.5 H Lymph % (Auto) 7.4 L [place] % (Auto) 11.9 Eos % (Auto) 1.2 L Baso % (Auto) 0.0 Neut # (Auto) 5900 Assessment & Plan Plan: Assessment/Plan Narrative: Postop pain, weakness and elevated blood sugars. Patient appears quite stable and able to return to nursing home facility to continue rehab services. I expect her blood sugars to improve over the next few days as FX of dexamethasone wear off. I have ordered a NovoLog high-dose sliding scale for nursing facility. She should continue on her routine Lantus and Humalog dosing. Have also increased her oxycodone so she can take 5-10 mg every 3 hr as needed for postop pain. I have completed nursing home discharge orders.
--- NOTE | 2017-12-19 12:13 | P.CONS_ITS ---
History of Present Illness Date Patient Seen: 12/19/17 Chief complaint: WEAKNESS, S/P MULTIPLE LEVEL TLIF Reason for consult: Weakness and diabetes control Requesting provider: Radha Coon Narrative: Patient was discharged to [facility] facility on December 17 after admission for elective lumbar surgery. She was sent back to the ER at [facility] last night due to weakness, pain and concern about elevated blood sugars. She is afebrile. Her labs and other vitals are stable. Glucose in 300s on transfer to [facility]. [facility] Social History household members: children and caregiver Smoking Status: Never smoker alcohol intake: never Meds Home Medications Medication Instructions Recorded Confirmed Type abatacept 125 mg SUB-Q QWEEK 11/20/17 12/18/17 History albuterol sulfate [ProAir HFA] 2 puff INHALATION Q4-6H PRN 11/20/17 12/18/17 History aspirin 81 mg PO DAILY 11/20/17 12/18/17 History atorvastatin 20 mg PO DAILY 11/20/17 12/18/17 History carvedilol 6.25 mg PO BID 11/20/17 12/18/17 History diclofenac sodium 2 applic TOPICAL BID PRN 11/20/17 12/18/17 History duloxetine 60 mg PO DAILY 11/20/17 12/18/17 History ferrous sulfate 325 mg PO DAILY 11/20/17 12/18/17 History fluoxetine 20 mg PO QAM 11/20/17 12/18/17 History fluticasone 2 spray INTRANASAL DAILY PRN 11/20/17 12/18/17 History furosemide 20 mg PO DAILY PRN 11/20/17 12/18/17 History hydroxychloroquine 400 mg PO DAILY 11/20/17 12/18/17 History hyoscyamine sulfate 0.125 mg PO PRN PRN 11/20/17 12/18/17 History insulin lispro [Humalog U-100 See Label Instructions .ROUTE 11/20/17 12/18/17 History Insulin] .COMPLEX leflunomide 20 mg PO DAILY 11/20/17 12/18/17 History lisinopril 5 mg PO DAILY 11/20/17 12/18/17 History loratadine 10 mg PO DAILY PRN 11/20/17 12/18/17 History nitroglycerin 0.4 mg SUBLINGUAL Q5-15M PRN 11/20/17 12/18/17 History nystatin 1 applic TOPICAL BID PRN 11/20/17 12/18/17 History omeprazole 40 mg PO BID 11/20/17 12/18/17 History pramipexole 0.5 mg PO SEEINSTR 11/20/17 12/18/17 History spironolactone 25 mg PO DAILY 11/20/17 12/18/17 History zolpidem 5 mg PO BEDTIME PRN 11/20/17 12/18/17 History acetaminophen 650 mg PO Q6HR PRN #60 tab 12/17/17 12/18/17 Rx amiodarone 200 mg PO BID #60 tab 12/17/17 12/18/17 Rx insulin glargine [Lantus U-100 See Label Instructions .ROUTE 12/17/17 12/18/17 History Insulin] .COMPLEX methocarbamol 500 mg PO BID #60 tab 12/17/17 12/18/17 Rx pregabalin 200 mg PO TID #60 cap 12/17/17 12/18/17 Rx insulin aspart U-100 [Novolog 0 unit SUB-Q ACHS #15 ml 12/19/17 Rx Flexpen U-100 Insulin] oxycodone See Label Instructions .ROUTE 12/19/17 Rx .COMPLEX PRN #90 cap Allergies Allergy/AdvReac Type Severity Reaction Status Date / Time metformin [METFORMIN] Allergy Severe Hives Verified 12/13/17 07:25 methadone Allergy Severe Hives Verified 12/13/17 07:25 Sulfa (Sulfonamide Allergy Severe Hives Verified 12/13/17 07:25 Antibiotics) sulfasalazine Allergy Severe R/T sulfa Verified 12/13/17 07:25 allergy trazodone Allergy Severe Hives, Verified 12/13/17 07:25 Resp issues, confusion trimethoprim Allergy Intermediate Hives Verified 12/13/17 07:25 etanercept Allergy Mild Rash, Verified 12/13/17 07:25 non-urticarial adalimumab Allergy Unknown Localized Verified 12/13/17 07:25 swelling diflunisal AdvReac Severe May have Verified 12/13/17 07:25 caused renal injury 10/28 bacitracin AdvReac Intermediate Swelling, Verified 12/13/17 07:25 burning amoxicillin AdvReac Unknown Diarrhea Verified 12/13/17 07:25 cefuroxime AdvReac Unknown Diarrhea Verified 12/13/17 07:25 hydroxychloroquine AdvReac Unknown Stopped Verified 12/13/17 07:25 for unknown reason methotrexate AdvReac Unknown oral ulcer Verified 12/13/17 07:25 issues Review of Systems Review of Systems All systems reviewed & are unremarkable except as noted in HPI and below Exam Vital Signs (past 8 hours): - 12/19/17 04:42 12/19/17 08:00 Temperature 96.8 F L 98.3 F Pulse Rate 63 57 L Respiratory Rate 18 14 Blood Pressure 149/97 H 153/56 H Pulse Oximetry 97 96 Narrative Exam Narrative: GENERAL: Patient is in no acute distress HEENT: Head normocephalic, atraumatic. Mucous membranes moist. CHEST: Clear to auscultation bilaterally. CARDIAC: Regular rate and rhythm. ABDOMEN: Nondistended, soft, nontender EXTREMITIES: no edema. NEUROLOGICAL: Alert, pleasant, no focal findings SKIN: Warm, dry, no petechiae, no rash Objective Labs Result Diagrams: 12/19/17 05:07 Labs: Laboratory Results - last 24 hr 12/19/17 05:07 WBC 7.5 RBC 3.56 L Hgb 10.4 L Hct 30.9 L MCV 87.0 MCH 29.1 MCHC 33.5 RDW 13.7 Plt Count 161 Neut % (Auto) 79.5 H Lymph % (Auto) 7.4 L [place] % (Auto) 11.9 Eos % (Auto) 1.2 L Baso % (Auto) 0.0 Neut # (Auto) 5900 Assessment & Plan Plan: Assessment/Plan Narrative: Postop pain, weakness and elevated blood sugars. Patient appears quite stable and able to return to [facility] facility to continue rehab services. I expect her blood sugars to improve over the next few days as FX of dexamethasone wear off. I have ordered a NovoLog high-dose sliding scale for nursing facility. She should continue on her routine Lantus and Humalog dosing. Have also increased her oxycodone so she can take 5-10 mg every 3 hr as needed for postop pain. I have completed [facility] discharge orders.
[2017-12-19] MEDS: INSULIN ASPART 100 UNIT/ML INSULN PEN 25 UNIT SUBCUT (12:49)
[2017-12-19] MEDS: INSULIN ASPART 100 UNIT/ML INSULN PEN SUBCUT (12:49)
--- NOTE | 2017-12-19 13:21 | OT.IP.EVAL ---
Current Diagnoses Type 2 diabetes mellitus without complications (12/18/17) Unspecified atrial fibrillation (12/18/17) Fibromyalgia (12/18/17) Arthrodesis status (12/18/17) Past Medical History (Last Reviewed 12/14/17 @ 09:35 by Thom Mohr MD) Diabetes (Acute) Fibromyalgia (Acute) Depression (Acute) On anticoagulant therapy (Acute) Afib (Acute) Anxiety (Acute) Asthma (Acute) Blepharoconjunctivitis (Acute) CHF (congestive heart failure) (Acute) COPD (chronic obstructive pulmonary disease) (Acute) Cataract fragments in both eyes following surgery (Acute) Chronic low back pain (Acute) Complicated urinary tract infection (Acute) Depression (Acute) Diabetes (Acute) Dizziness (Acute) Dyspnea (Acute) Eczema (Acute) Fatigue (Acute) Fibromyalgia (Acute) GERD (gastroesophageal reflux disease) (Acute) 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) History of GI bleed (Acute) History of UTI (Acute) History of chest pain (Acute) History of headache (Acute) Hypertension (Acute) IBS (irritable bowel syndrome) (Acute) Liver disease (Acute) Memory loss (Acute) Nausea (Acute) Neurogenic bladder (Acute) Neuropathy due to secondary diabetes (Acute) Osteoarthritis (Acute) Osteoporosis (Acute) Ovarian cyst, right (Acute) Paroxysmal A-fib (Acute) Postmenopausal (Acute) Restless leg syndrome (Acute) Rheumatoid arthritis (Acute) Sinus infection (Acute) Sleep apnea (Acute) Sleeping difficulty (Acute) Spinal stenosis (Acute) Ulcer of toe of left foot (Acute) Urinary urgency (Acute) Vulvovaginitis due to yeast (Acute) Yeast dermatitis (Acute) Surgical History (Last Reviewed 12/14/17 @ 09:35 by Thom Mohr MD) S/P lumbar fusion (Acute) Occupational Therapy Inpatient Evaluation/Re-Eval M1 PT/OT-IP Prior Functional Status Start: 12/19/17 12:36 Freq: NEEDED Status: Active Protocol: Document 12/19/17 11:50 AB (Rec: 12/19/17 13:02 AB [id number]) Medical Review Prior Functional Status Medical History Reviewed Yes Mobility and Gait from last eval info: daughter stated that pt was able to transfer by herself onto her electric w/c. Has DALJIT to assist her during the day and her daughter is there to assist her at night. 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 Living Arrangements House Number of Floors (Floors) One Floor Home Environment Standard Height Toilet Walk in Shower Home Equipment Shower Seat without Backrest Grab Bars Near Toilet Grab Bars In Shower Employment Status Retired Additional Social History Comment pt has a power recliner M1 PT/OT-IP Prior Functional Status Start: 12/19/17 12:45 Freq: NEEDED Status: Active Protocol: Document 12/19/17 13:04 [facility] (Rec: 12/19/17 13:21 [facility] [id number]) Medical Review Prior Functional Status Medical History Reviewed Yes Mobility and Gait from last eval info: daughter stated that pt was able to transfer by herself onto her electric w/c. Has DALJIT to assist her during the day and her daughter is there to assist her at night. 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 Living Arrangements House Number of Floors (Floors) One Floor Home Environment Standard Height Toilet Walk in Shower Home Equipment Shower Seat without Backrest Grab Bars Near Toilet Grab Bars In Shower Employment Status Retired Additional Social History Comment pt has a power recliner M2 OT-IP Current Condition Start: 12/19/17 12:36 Freq: Status: Active Protocol: Document 12/19/17 13:04 [facility] (Rec: 12/19/17 13:21 [facility] [id number]) Occupational Therapy Current Condition Current Condition Evaluation Date 12/19/17 Treatment Diagnosis Weakness, elevate blood sugar Post Operative Precautions Lumbar Precautions Log Roll No Twisting Limit Bending Lifting Restriction of 10 lbs Gait Belt above Incisional Area Other Precautions falls M3 OT- IP Subjective and Pain Start: 12/19/17 12:36 Freq: Status: Active Protocol: Document 12/19/17 13:04 [facility] (Rec: 12/19/17 13:21 [facility] [id number]) OT- Subjective Occupational Therapy Visit Type Type Initial Evaluation Visit Start Time 11:45 Visit Stop Time 12:30 Total Visit Minutes 45 Notes Pt agreeable to use the BS. Occupational Therapy Visit Comments Patient/Caregiver Goals To be able to go home when stronger and able. OT Pain Assessment Pain When Pain Assessed At Rest Pain Present Pain Present Pain Reported M4 OT- IP ADL's Start: 12/19/17 12:36 Freq: Status: Active Protocol: Document 12/19/17 13:04 [facility] (Rec: 12/19/17 13:21 [facility] [id number]) OT ADL-Dressing General Eval Lower Body Dressing Ability Total Assistance Areas Needing Assistance Retrieving/Set-up of Clothing Underpants/Brief Comments OT Dressing Comments Pt dependent x2-3 for all hygiene and brief change. OT ADL-Toileting General Evaluation Toileting Ability Total Assistance Areas Needing Assistance Manage Clothing Perform Perineal Hygiene Devices Toileting Assistive Devices Commode Comments OT Toileting Comments Dependent for all hygiene and brief needs. M6 OT- IP Functional Cognition Start: 12/19/17 12:36 Freq: Status: Active Protocol: Document 12/19/17 13:04 [facility] (Rec: 12/19/17 13:21 [facility] [id number]) Cognitive Factors Limiting Selfcare Function Cognitive Ability Level of Alertness Alert Patient Orientation Name Place Situation Attention Span Ability Capable of Focused Attention Capable of Sustained Attention Ability to Follow Commands Able to Follow One Step Commands Memory Description Immediate Intact Short Term Impaired Safety Awareness Decreased Recall of Precautions Cognitive Comments Cognitive Assessment Comments Pt needing lots of encouragement and step by step commands. OT- Vision and Hearing OT- Hearing Assessment OT- Hearing Assessment WFL M7 OT- IP Mobility and Balance Start: 12/19/17 12:36 Freq: Status: Active Protocol: Document 12/19/17 13:04 [facility] (Rec: 12/19/17 13:21 [facility] [id number]) OT- Bed Mobility Assessment Rolling Type of Rolling Bilateral Level of Assistance Total Assistance 2 Person Assistance Bedrails Supine to Sit Supine to Sit Assist Total Assistance 2 Person Assistance Sit to Supine Sit to Supine Assist Total Assistance 2 Person Assistance Scooting Scooting to Edge of Bed Total Assistance 2 Person Assistance OT-Transfer Assessment Sit to and From Stand Sit to and from Stand Maximum Assistance Total Assistance 2 Person Assistance Transfers Transfer Ability Maximum Assistance Total Assistance 2 Person Assistance Technique Transfer Destination Bed Bedside Commode Transfer Technique Stand Step Pivot Devices Transfer Assistive Devices Gait Belt Front Wheeled Walker Comments Mobility Comments MAX-Total assist 2-3 people. Initially use of FWW and then from C stand pivot MAX A- Total. OT- Balance Assessment Sitting Balance and Reactions Static Sitting Balance Ability Poor Dynamic Sitting Balance Ability Poor Standing Balance and Reactions Static Standing Balance Ability Poor Dynamic Standing Balance Ability Poor M8 OT- IP Objective Assessments Start: 12/19/17 12:36 Freq: Status: Active Protocol: Document 12/19/17 13:04 [facility] (Rec: 12/19/17 13:21 [facility] [id number]) OT-Muscle Tone Assessment Muscle Tone WNL Yes M9 OT- IP Assessment and Plan Start: 12/19/17 12:36 Freq: Status: Active Protocol: Document 12/19/17 13:04 [facility] (Rec: 12/19/17 13:21 [facility] [id number]) OT Summary Assessment and Plan Potential Rehabilitation Potential Fair Analytic Complexity at Evaluation Moderate Summary OT Impairments Pain Strength Balance Functional Cognition Functional Mobility Self-Feeding Grooming Dressing Toileting Bathing Toilet Transfers Shower Transfers Progress Towards Goals Slow Progress due to Pain Slow Progress due to Medical Issues Slow Progress due to Activity Tolerance Slow Progress due to Cognition Assessment Summary Pt needing extensive assist for all needs and looking to go back to skilled rehab soon. Goals Grooming Goal Minimal Assistance Dressing Goal Moderate Assistance Toileting Goal Moderate Assistance Toilet Transfer Goal Moderate Assistance Bedside Commode Days to Meet Goals 7 Frequency of Treatment Frequency Of Treatment Once a Day Treatment Plan OT Treatment Plan ADL Training Functional Cognition Training Functional Mobility Patient/Family Education Discharge Planning Other Treatment Recommendations and Next Go over back precautions, Treatment Focus transfer to [facility]. Discharge Recommendations OT Discharge Recommendations SNF Rehab Home Equipment Needs [facility], [facility]
--- NOTE | 2017-12-19 14:09 | PC.NURSE ---
1205 Pt transfered to [facility] via stretcher/mbulance. report called to Jigna.
--- NOTE | 2017-12-19 15:34 | CM.DPNOTE ---
DC Note: Pt here under obs for pain and weakness s/p recent spinal surgery; seen by Dr Coon and DC by PA back to [facility] today. Reviewed plan w/pt and her dtr Annmarie (lives in [place]) P# [phone]; all aware and agreeable to DCP today. Updated Jigna w/[facility], filling in for Deb. Faxed completed DC ppk including signed med list. Jigna arranged BLS p/u for [phone]. RN, pt/dtr aware and agreeable to DCP. JW
--- NOTE | 2018-03-24 13:36 | PM.DS.1 ---
History of Present Illness Date Patient Seen: 12/19/17 Chief complaint: WEAKNESS, S/P MULTIPLE LEVEL TLIF Narrative: Please see progress note dated 12/19/17 from Noe Vernon PA-C for HPI. Discharge Providers Date of admission: 12/18/17 19:33 Primary care physician: Shane Flower MD Consults: 12/18/17 21:42 Consult to Occupational Therapy Evaluate & Treat Comment: Physician Instructions: Evaluate and treat Consult to Physical Therapy Evaluate & Treat Comment: Physician Instructions: Evaluate and Treat 12/18/17 21:48 Consult to Physician Routine Comment: Consulting Provider: Thom Mohr V Reason for consultation: diabetic control Has provider been notified: Yes Discharge provider: Malina Reilly PA-C Discharge Date: 12/19/17 Exam Narrative Exam Narrative: Please see progress note from 12/19/16 for HPI. Objective Labs Result Diagrams: 12/19/17 05:07 Discharge Plan Discharge Plan Patient Disposition: SNF Consult as needed: Dental, Hearing, Mental health, Podiatry and Vision Discharge comment: Patient slow to recover following lumbar fusion, as well as difficulty managing DM. Last glucose 220. Pt had received dexamethasone during admission which caused glucose to spike. Expect glucose control will improve in next few days. Sliding scale insulin ordered for while at SNF I certify the postop hospital correction care is medically necessary on a continuing basis for any conditions for which he/ she received care during this hospitalization.: Yes The receiving facility has agreed to accept transfer and provide medical treatment.: Yes Discharge Med Rec/Prescriptions Prescriptions: New insulin aspart U-100 [Novolog Flexpen U-100 Insulin] 100 unit/mL Insulin Pen Sub-Q ACHS Qty: 15 RF: 0 oxycodone 5 mg capsule See Label Instructions .ROUTE .COMPLEX PRN (Reason: pain) Qty: 90 RF: 0 Continue aspirin 81 mg Tablet,Delayed Release (Dr/Ec) 81 mg PO DAILY RF: 0 ferrous sulfate 325 mg (65 mg iron) Tablet 325 mg PO DAILY RF: 0 insulin lispro [Humalog U-100 Insulin] 100 unit/mL Solution See Label Instructions .ROUTE .COMPLEX RF: 0 fluticasone 50 mcg/actuation [place],Suspension 2 spray INTRANASAL DAILY PRN (Reason: allergies) RF: 0 duloxetine 60 mg Capsule,Delayed Release(Dr/Ec) 60 mg PO DAILY RF: 0 furosemide 40 mg Tablet 20 mg PO DAILY PRN (Reason: Edema) RF: 0 carvedilol 6.25 mg Tablet 6.25 mg PO BID RF: 0 atorvastatin 20 mg Tablet 20 mg PO DAILY RF: 0 omeprazole 40 mg Capsule,Delayed Release(Dr/Ec) 40 mg PO BID RF: 0 leflunomide 20 mg Tablet 20 mg PO DAILY RF: 0 spironolactone 25 mg Tablet 25 mg PO DAILY RF: 0 pramipexole 0.5 mg Tablet 0.5 mg PO SEEINSTR RF: 0 fluoxetine 20 mg Tablet 20 mg PO QAM RF: 0 hyoscyamine sulfate 0.125 mg Tablet, Sublingual 0.125 mg PO PRN PRN (Reason: Abdominal Discomfort) RF: 0 nitroglycerin 0.4 mg Tablet, Sublingual 0.4 mg SUBLINGUAL Q5-15M PRN (Reason: Chest Pain) RF: 0 lisinopril 5 mg Tablet 5 mg PO DAILY RF: 0 zolpidem 5 mg Tablet 5 mg PO BEDTIME PRN (Reason: Sleep) RF: 0 nystatin 100,000 unit/gram Powder 1 applic TOPICAL BID PRN (Reason: yeast) RF: 0 hydroxychloroquine 200 mg Tablet 400 mg PO DAILY RF: 0 albuterol sulfate [ProAir HFA] 90 mcg/actuation Hfa Aerosol Inhaler 2 puff INHALATION Q4-6H PRN (Reason: SOB) RF: 0 loratadine 10 mg Tablet 10 mg PO DAILY PRN (Reason: allergies) RF: 0 diclofenac sodium 1 % Gel 2 applic TOPICAL BID PRN (Reason: joint pain) RF: 0 abatacept 125 mg/mL Syringe 125 mg SUB-Q QWEEK RF: 0 pregabalin 200 mg capsule 200 mg PO TID Qty: 60 RF: 0 acetaminophen 325 mg Tablet 650 mg PO Q6HR PRN (Reason: Pain, Mild (1-3)) Qty: 60 RF: 0 insulin glargine [Lantus U-100 Insulin] 100 unit/mL solution See Label Instructions .ROUTE .COMPLEX RF: 0 methocarbamol 500 mg tablet 500 mg PO BID Qty: 60 RF: 0 amiodarone 200 mg tablet 200 mg PO BID Qty: 60 RF: 0 Discontinued betamethasone, augmented 0.05 % Cream 1 applic TOPICAL DAILY RF: 0 tolnaftate 1 % Cream 1 applic TOPICAL BID RF: 0 oxycodone 5 mg capsule 5 mg PO Q4-6H PRN (Reason: pain) Qty: 60 RF: 0 Follow up/Referrals: Shane Flower MD [Primary Care Provider] - Amanda Franklin MD [Physician] - 2 Weeks Discharge Health Status Multidrug resistant organism: No MDRO Provider Discharge Instructions Liquid consistency: Normal/Thin Food texture: Regular Activity: No excessive bending, lifting, or twisting. Cold/Heat Therapy: as needed Catheter: 2-way [place] Catheter comment: maintain catheter until pt is more mobile [facility] Reason for rehabilitation: Post-operative therapy Rehab type: Physical therapy and Occupational therapy Discharge Data Primary Care Provider: Shane Flower Attending Provider: Radha Coon Admit Date/Time: 12/18/17 19:33 Discharges patient from system. Discharge Date/Time: 12/19/17 14:10 Quality VTE Deep Vein Thrombosis/Pulmonary Embolism Present on Admission: No
== END 2017-12-19 14:10 ==
PROVIDERS: Admitting Provider Orthopaedic Surgery; PCP Internal Medicine; Visit Provider Orthopaedic Surgery
DX: R18.8 Other ascites (principal); I48.91 Unspecified atrial fibrillation; M79.7 Fibromyalgia; Z98.1 Arthrodesis status; R53.1 Weakness; Z79.4 Long term (current) use of insulin; E11.65 Type 2 diabetes mellitus with hyperglycemia; E83.51 Hypocalcemia; G89.18 Other acute postprocedural pain
CPT/HCPCS: 36415; 82962; 85025; 97162; 97166; G0378; G0379